=== PATIENT | female | born 1955 | race Caucasian/White ===

== ENCOUNTER 2016-08-08 14:11 | Inpatient (IN) ==
[2016-08-08] MEDS ORDERED: SODIUM CHLORIDE 0.9% 1,000 ML IV STA (15:26)
--- NOTE | 2016-08-08 15:29 | EKG Report ---
Stationary ECG Study [facility] ER Test Date: 08/08/2016 2:33:28 PM Pat Name: VALENTINA MANN Department: Room: Gender: F Tram Operator: Roberto Astudillo : 1955 Requested by: Jr Masters Order Number: [id number] Reading MD: DUSTIN CRAFT Intervals [place] Rate: 57 P: 65 [place]: 148 QRS: 69 QRSD: 92 T: 59 QT: 444 QTc: 437 Interpretive Statements SINUS BRADYCARDIA Electronically Signed On 08-08-16 16:07:04 RUBBER MIXER by DUSTIN CRAFT [email or web address]
--- NOTE | 2016-08-08 15:35 | Emergency Department Note ---
Jc Lyle Meredith, am scribing for, and in the presence of, Jr Corona MD 15: 30. Chloe Lyle James D, MD, personally performed the services described in this documentation, ascribed by Kelsie Greene in my presence, and it is both accurate and complete [id number] . Arrival - Arrival Chief Complaint: Syncope Stated Complaint: MULTIPLE FALLS, TRANSCIENT CHANGES IN LOC ED Nursing Triage Note: syncopal episodes with falls that started on saturday. having slurred speech with episodes. had an episode last night as well. glucose was 146 at home today after fall. Mode of Arrival: Wheelchair Limitations: No Limitations Source: Patient, Old Records Reviewed, RN Notes Reviewed Time Seen by Provider: 08/08/16 15:21 - History of Present Illness HPI Narrative: Pt is a 61 y/o white female reporting to the ED with c/o multiple syncopal episodes since the end of May. She had 2 last night and 3 today. Pt confirms associated lightheadedness and slurred speech but denies any urinary/ fecal incontinence or palpitations. Pt states her grandson has witnessed one of these episodes and reported that she started shaking then passed out. She was recently diagnosed with diabetes. Her blood sugar just after her most recent syncopal episode was 146 mg/dL. Pt has a history of HTN, anxiety, depression, HLD, asthma, herniated disk, and endometriosis. Onset (ago): month(s) Consistency: intermittent Allergies/Adverse Reactions: Allergies Allergy/AdvReac Type Severity Reaction Status Date / Time No Known Allergies Allergy Unverified 01/24/16 09:21 Home Medications: Home Medications Medication Instructions Recorded Confirmed Type Atenolol 50 mg PO DAILY 01/26/16 01/26/16 History Atorvastatin [Lipitor] 20 mg PO DAILY 01/26/16 01/26/16 History Clorazepate [Tranxene] 3.75 mg PO BID PRN 01/26/16 01/26/16 History Furosemide Tab [Lasix Tab] 10 mg PO DAILY 01/26/16 01/26/16 History Levothyroxine Tab [Synthroid Tab] 100 mcg PO DAILY@0700 01/26/16 01/26/16 History Nitroglycerin Sl Tab [Nitrostat] 0.4 mg SL Q5M PRN 01/26/16 01/26/16 History Sertraline [Zoloft] 100 mg PO DAILY 01/26/16 01/26/16 History traMADol TAB [Ultram] 50 mg PO BID PRN 01/26/16 01/26/16 History Aspirin Chew Tab 81 mg PO DAILY #100 tablet 01/27/16 Rx Cilostazol [Pletal] 50 mg PO BID #60 tablet 01/27/16 Rx HYDROcodone/ACETAMIN 7.5-325 1 tablet PO BID PRN #20 tablet 01/27/16 Rx [[place] 7.5-325] Niacin 500 mg PO BEDTIME #100 tablet 01/27/16 Rx Ticagrelor [Brilinta] 90 mg PO BID #60 tablet 01/27/16 Rx Tramadol HCl [Tramadol Tab] 50 mg PO BID PRN #30 tablet 01/27/16 Rx Review of System - Review of System 12 point system: reviewed and no additional remarkable complaints except as stated - Review of System Constitutional: Present: as per HPI, other (lightheadedness) Cardiovascular: Present: as per HPI, syncope. Absent: palpitations Gastrointestinal: Present: as per HPI, other (no fecal incontience) Genitourinary female: Present: as per HPI, other (no urinary incontinence) Neurological: Present: as per HPI, other (slurred speech) Medical,Surgical,& Family Hx - Medical History Cardio: History of: Hypertension Psychological: History of: Anxiety Disorders, Depression (due to husbands recent ) Neurology: No history of: Seizures Endocrine: History of: Dyslipidemia Respiratory: History of: Asthma Musculoskeletal: History of: Back/Neck Problems, Herniated Disk Reproductive: History of: Endometriosis - Surgical History Cardiac Surgeries: Sugical HX of: Cardiac Catheterization HEENT Surgeries: Patient denies: Tonsilectomy & Adenoidectomy (patient stated tonsils rotted out) Abdominal Surgeries: Surgical HX of: Abdominal Surgery (at 20yo), Appendectomy, Hernia Repair Reproductive Surgeries: Surgical HX of;: Breast Surgery (patient stated she had 2 lumps removed) - Family History Family History: Reports;: Family Cancer (mom- ovarian, cervical; dad - colon; sisters breast, ovarian; brother bone), Family Hypertension (mom, dad, & 3 sisters), Family Stroke (maternal grandmother) - Social History Smoking Status: Never smoker Exam Physical Examination: GENERAL: This is a well-nourished, well-developed white female in no apparent distress. VITAL SIGNS: Temperature: 97.1, Pulse: 60, Respirations: 18, Blood pressure: 116 /62, O2 Saturation: 97 HEENT: Head is normocephalic with an area of ecchymosis to the mid forehead. Pupils are equally round and reactive to light. Extraocular movement are intact. Oropharynx is benign with moist mucous membranes. NECK: Neck is soft and supple without tenderness. There are no masses. There is no lymphadenopathy. LUNGS: Lungs are clear to auscultation bilaterally. Chest rises symmetrically. There is no chest wall tenderness. CV: Heart is regular rate and rhythm without murmurs, rubs, or gallops. ABDOMEN: Abdomen is soft, non-tender to palpation. There are no abnormal masses palpated. There is no organomegaly. Bowel sounds are present and active. SKIN: Skin is warm and dry. No rash. Area of ecchymosis to the mid forehead. EXTREMITIES: Patient has full range of motion without tenderness. There is no pedal edema. NEUROLOGIC: Awake, alert, and oriented x4. Cranial nerves II through XII are grossly intact. There are no motorsensory deficits. PSYCHIATRIC: Normal affect. Normal mood. Vital Signs: Vital Signs Temperature 97.1 F L 08/08/16 14:23 Pulse Rate 60 08/08/16 14:23 Respiratory Rate 16 08/08/16 16:30 Blood Pressure 116/62 08/08/16 14:23 O2 Sat by Pulse Oximetry 97 08/08/16 14:23 Results - Labs CBC & BMP: 08/08/16 15:20 08/08/16 15:20 Lab Results: I have reviewed the patients labs Labs: Laboratory Tests 08/08/16 08/08/16 15:20 15:20 WBC 10.0 RBC 4.21 Hgb 13.2 Hct 38.0 Plt Count 349 MPV 9.0 L Baso % (Auto) 1.0 H Lymph # (Auto) 4.5 H INR 1.0 PT Patient/Control Mix 10.7 Laboratory Tests 08/08/16 15:20 Sodium 142 Potassium 4.0 Chloride 105 Carbon Dioxide 26 BUN 19 H Creatinine 1.10 H Troponin I < 0.015 Laboratory Tests 08/08/16 15:20 B-Natriuretic Peptide 21 Prolactin 6.4 Laboratory Tests 08/08/16 15:20 Troponin I < 0.015 - EKG EKG results: interpreted by ERMD - Impressions EKG: Sinus bradycardia with a rate of 57, normal axis, nonspecific ST-T wave changes. - Diagnostic Findings Procedure: Chest x-ray: image reviewed by me, CT: report reviewed by me (CT head : No acute intracranial abnormality. ) Disposition Clinical Impression: Syncope, Diabetes mellitus Case discussed with: patient Disposition: Still a Patient
[2016-08-08 15:38] LABS: Basophils # 0.1 10*3/uL (0.0-0.2); Eosinophils # 0.1 10*3/uL (0.0-0.87); Eosinophils % 1.2 % (0.00-10.9); Hemoglobin 13.2 GM/DL (12.0-16.0); Immature Granulocytes % 0.2 %; Immature Granulocytes Absolute 0.02 #; Lymphocytes # 4.5 10*3/uL (1.4-4.0); Lymphocytes % 45.5 % (21.3-54.2); Mean Corpuscular HGB Conc 34.7 GM/DL (32-36); Mean Corpuscular Hemoglobin 31 PG (27-34); Mean Corpuscular Volume 90.3 FL (87-102); Monocytes # 0.8 10*3/uL (0.11-0.8); Monocytes % 7.8 % (1.7-12.7); Neutrophils # 4.4 10*3/uL (1.4-7.4); Neutrophils % 44.3 % (38.7-73.9); Platelet Count 349 T/CUMM (130-400); Red Blood Count 4.21 MC/CUMM (3.8-5.5); Red Cell Distribution Width 13.1 % (9.3-17.3)
[2016-08-08 15:50] LABS: PT Patient Result 10.7 SECS
--- NOTE | 2016-08-08 15:50 | CT Report ---
Referring physician: Jr Corona Exam: CT brain without contrast Date: 08/08/2016 Comparison: None Reason: Syncope Technique: Axial images of the head were obtained without the use of contrast. Total DLP was 1103.60 mGy*cm. Findings: No hydrocephalus or midline shift is present. There is no evidence of an acute infarction, recent intracranial hemorrhage or abnormal mass effect. The osseous structures appear intact. The mastoid air cells and visualized paranasal sinuses are clear. Impression: No acute intracranial abnormality is identified. The CT exam was performed using one or more of the following dose reduction techniques: Automated exposure control and adjustment of the mA and/or kV according to patient size. PROCEDURE INTERPRETED AT [facility] DEPARTMENT OF RADIOLOGY Final Report Signed by: Dr. Lilly Valentin
[2016-08-08 16:06] LABS: Alanine Aminotransferase 35 U/L (13-56); Albumin 3.8 G/DL (3.4-5.0); Alkaline Phosphatase 90 U/L (45-117); Aspartate Amino Transferase 27 U/L (0-37); Bilirubin,Total < 0.39 MG/DL (0.2-1.0); Blood Urea Nitrogen 19 MG/DL (7-18); Calcium 9.4 MG/DL (8.5-10.1); Glucose 90 MG/DL (74-106); Osmolality,Calculated 284.1 MOS/KG (273-304); Sodium 142 MMOL/L (136-145); Total Protein 7.2 G/DL (6.4-8.3); Troponin I Only < 0.015 NG/ML (0.00-0.045)
[2016-08-08 16:21] LABS: Prolactin 6.4 NG/ML
[2016-08-08] MEDS ORDERED: GLUCAGON 1 MG VIAL IM PRN (16:32)
[2016-08-08] MEDS ORDERED: DEXTROSE 50% 25 GM/50 ML VIAL IV PRN (16:32)
[2016-08-08] MEDS ORDERED: ACETAMINOPHEN 325 MG TABLET PO PRN (16:32)
[2016-08-08] MEDS ORDERED: NALOXONE 0.4 MG/ML VIAL IV PRN (16:32)
[2016-08-08] MEDS ORDERED: ONDANSETRON 4 MG/2 ML VIAL IV PRN (16:32)
[2016-08-08] MEDS ORDERED: traMADol 50 MG TABLET PO PRN (16:32)
--- NOTE | 2016-08-08 16:46 | Family Practice History&Phys ---
Assessment and Plan (1) Syncope Status: Acute Assessment and plan: 08/08/2016: Cardiac workup has been ordered. Will consult cardiology. Carotid Dopplers and venous Dopplers lower extremities have been ordered. I am going to ask pain management to see her as her back pain is severe. Current Visit: Yes History of Present Illness Chief complaint: Recurrent syncope History of present illness: Ms. Ceja is a 61 year old female Patient's 61-year-old white female presents to emergency room with history of recurring syncopal episodes. Patient is fallen 3 times today and each time she feels like she is going to pass out and falls to the floor. Patient had one episode yesterday episode 2 days before. She has had complete syncope and 2 of these episodes and on the other episodes almost passed out. Patient states he does not have any chest pain or palpitations prior to these spells but feels herself getting weak and down she goes. She does have a history of coronary artery disease and has had prior left heart cath and stenting. She denies any nausea, vomiting or diaphoresis with these episodes. She denies any neck shoulder arm discomfort associated with these spells. There is no one present that is witnessed any of these episodes. There is nothing to suggest seizure- like episodes and she certainly has not had any incontinence or tongue trauma. Patient has been burdened with severe back pain has been going to the pain management clinic. Home Medications Medication Instructions Recorded Confirmed Type Atenolol 50 mg PO DAILY 01/26/16 01/26/16 History Atorvastatin [Lipitor] 20 mg PO DAILY 01/26/16 01/26/16 History Clorazepate [Tranxene] 3.75 mg PO BID PRN 01/26/16 01/26/16 History Furosemide Tab [Lasix Tab] 10 mg PO DAILY 01/26/16 01/26/16 History Levothyroxine Tab [Synthroid Tab] 100 mcg PO DAILY@0700 01/26/16 01/26/16 History Nitroglycerin Sl Tab [Nitrostat] 0.4 mg SL Q5M PRN 01/26/16 01/26/16 History Sertraline [Zoloft] 100 mg PO DAILY 01/26/16 01/26/16 History traMADol TAB [Ultram] 50 mg PO BID PRN 01/26/16 01/26/16 History Aspirin Chew Tab 81 mg PO DAILY #100 tablet 01/27/16 Rx Cilostazol [Pletal] 50 mg PO BID #60 tablet 01/27/16 Rx HYDROcodone/ACETAMIN 7.5-325 1 tablet PO BID PRN #20 tablet 01/27/16 Rx [[place] 7.5-325] Niacin 500 mg PO BEDTIME #100 tablet 01/27/16 Rx Ticagrelor [Brilinta] 90 mg PO BID #60 tablet 01/27/16 Rx Tramadol HCl [Tramadol Tab] 50 mg PO BID PRN #30 tablet 01/27/16 Rx Allergies Allergy/AdvReac Type Severity Reaction Status Date / Time No Known Allergies Allergy Unverified 01/24/16 09:21 - Constitutional Constitutional: Present: fatigue. Absent: chills, fever(s), weakness, weight gain - EENT Eyes: Absent: blurry vision, loss of vision Nose, mouth and throat: Absent: nasal congestion, sinus pressure, sore throat - Cardiovascular Cardiovascular: Present: lightheadedness. Absent: chest pain at rest, chest pain with activity, diaphoresis, orthopnea, palpitations - Respiratory Respiratory: Present: dyspnea, dyspnea on exertion. Absent: cough, wheezing - Gastrointestinal Gastrointestinal: Absent: abdominal pain, diarrhea, dyspepsia, dysphagia, melena , nausea, vomiting - Genitourinary Genitourinary: Absent: dysuria, hematuria, urinary hesitancy, urinary incontinence - Musculoskeletal Musculoskeletal: Present: back pain, limited range of motion. Absent: arthralgias, joint swelling, muscle weakness - Neurological Neurological: Present: syncope. Absent: confusion, convulsions, dizziness, headache(s), numbness, paresthesias - Psychiatric Psychiatric: Absent: anxiety, confusion, depression - Endocrine Endocrine: Present: fatigue. Absent: polydipsia, polyphagia - Hematologic/Lymphatic Hematologic/Lymphatic: Absent: easy bleeding, easy bruising Medical,Surgical,& Family Hx - Medical History Cardio: History of: Hypertension Psychological: History of: Anxiety Disorders, Depression (due to husbands recent ) Neurology: No history of: Seizures Endocrine: History of: Dyslipidemia Respiratory: History of: Asthma Musculoskeletal: History of: Back/Neck Problems, Herniated Disk Reproductive: History of: Endometriosis - Surgical History Cardiac Surgeries: Sugical HX of: Cardiac Catheterization HEENT Surgeries: Patient denies: Tonsilectomy & Adenoidectomy (patient stated tonsils rotted out) Abdominal Surgeries: Surgical HX of: Abdominal Surgery (at 20yo), Appendectomy, Hernia Repair Reproductive Surgeries: Surgical HX of;: Breast Surgery (patient stated she had 2 lumps removed) - Family History Family History: Reports;: Family Cancer (mom- ovarian, cervical; dad - colon; sisters breast, ovarian; brother bone), Family Hypertension (mom, dad, & 3 sisters), Family Stroke (maternal grandmother) - Social History Smoking Status: Never smoker Exam - Constitutional Vitals: Period Temp Pulse Resp BP Sys/Joseph Pulse Ox Last 24 Hr 97.1 F 60 16-18 116/62 97 Exam: Objective well-developed white female in no acute distress. Patient is tearful and upset about the developments of the day. She is able to give an excellent history but has obvious lack of clarity in some points due to her loss of consciousness. She denies any lateralizing weakness or confusion. HEENT: Pupils are equal round and reactive light bilaterally. Patient has normal EOMs. The pharynx is benign and the tongue is in the midline. Neck: The neck is supple there is no meningismus or thyromegaly palpable Cardiovascular: The heart rate is regular without murmurs, thrills or gallops. Patient was noted to have equal peripheral pulses. Respiratory: Lungs clear to auscultation bilaterally with no rales, rhonchi or wheezing Abdomen: Abdomen soft and nontender to palpation with no palpable hepatosplenomegaly, masses, localized or rebound tenderness. Neurologic: Patient has symmetrical strength in upper extremities. She is noted to have weakness in both lower extremities with attempted movement being apparently quite painful. She has no loss of sensation in her cranial nerves are intact. Extremities: There is no calf swelling or tenderness. Musculoskeletal: There is no joint swelling or tenderness at present. Dermatologic: There is no rashes, lesions or other abnormality seen. Results - Labs CBC & BMP: 08/08/16 15:20 08/08/16 15:20 Lab Results: I have reviewed the past 24 hour labs - Diagnostic Findings Procedure: CT: report reviewed by me (CT brain is unremarkable)
--- NOTE | 2016-08-08 16:55 | XRay Report ---
XR chest 1V portable Indication: Syncope Comparison: None available Findings: The heart and mediastinum are normal in size and configuration. The pulmonary vascularity is normal in caliber. No lung infiltrates, effusions, pneumothorax or other abnormality is demonstrated. Impression: Normal chest x-ray PROCEDURE INTERPRETED AT [facility] DEPARTMENT OF RADIOLOGY Final Report Signed by: Dr. Steven Burris
--- NOTE | 2016-08-08 17:56 | Ultrasound Report ---
Exam: Bilateral lower extremity venous Doppler ultrasound Comparison: None Clinical history: Shortness of breath, syncope Technique: Duplex scan of the lower extremity veins using B-mode/grayscale scaled imaging and Doppler spectral analysis and color flow. Findings: Major venous structures of the lower extremities demonstrate a normal course and caliber. Normal color-flow study and spectral analysis. There is normal compression and augmentation of bilateral common femoral, superficial femoral and popliteal veins. The proximal bilateral greater saphenous veins appear to be patent. Impression: No evidence to suggest deep venous thrombosis within either lower extremity. Ultrasound images were captured and stored. PROCEDURE INTERPRETED AT [facility] DEPARTMENT OF RADIOLOGY Final Report Signed by: Dr. Lilly Valentin
--- NOTE | 2016-08-08 17:58 | Ultrasound Report ---
Exam: Carotid ultrasound Date: 08/08/2016 Comparison: None Technique: Duplex scans of the carotid and vertebral arteries using B-mode/Lala scale imaging and Doppler spectral analysis and color flow. Reason: Syncope Findings: The right ICA measures 5.7 mm in diameter and the left ICA measures 5.7 mm in diameter. Color-flow documented in the visualized arteries. The peak systolic velocities are as follows: Right CCA: 74.2 cm/s Right ICA: 73.3 cm/s Right ECA: 120.6 cm/s Left CCA: 83.1 cm/s Left ICA: 69.3 cm/s Left ECA: 81.1 cm/s The peak systolic ICA/CCA velocity ratios are as follows: 1.0 on the right and 0.8 on the left. Antegrade flow is present in both vertebral arteries. Impression:[Less than 50% stenosis in both internal carotid arteries with heterogeneous plaque formation. Antegrade flow in both vertebral arteries.] The Society of Radiologists in Ultrasound consensus conference criteria was used. The Ultrasound images were captured and stored. PROCEDURE INTERPRETED AT [facility] DEPARTMENT OF RADIOLOGY Final Report Signed by: Dr. Lilly Valentin
[2016-08-08 18:08] LABS: Apearance,Urine CLEAR (Clear); Bilirubin,Urine Negative (Negative); Blood, Urine Negative (Negative); Glucose,Urine (UA) Negative (Negative); Ketones,Urine Negative (Negative); Nitrite,Urine Negative (Negative); Protein,Urine Negative; RBC,Urine 1 /HPF (0-4); Squamous Epithelial Cell,Urine Occasional /HPF (0-10); Urine Color Colorless (Yellow); Urine Specific Gravity 1.004 (1.001-1.035); Urine Urobilinogen < 2.0 EU/DL (0.2-1.0); WBC,Urine 1 /HPF (0-6)
[2016-08-08 18:12] LABS: Barbiturates Screen,Urine Negative (Negative); Benzodiazepines Screen,Urine Positive (Negative); Cannabinoid Screen,Urine Negative (Negative); Opiate Screen,Urine Positive (Negative); Phencyclidine Screen,Urine Negative (Negative)
[2016-08-08] MEDS ORDERED: NITROGLYCERIN SL 0.4 MG TABLET SL PRN (18:37)
[2016-08-08] MEDS: SODIUM CHLORIDE 0.45% 1,000 ML IV SCH (18:45)
[2016-08-08 20:23] LABS: Troponin I Only < 0.015 NG/ML (0.00-0.045)
[2016-08-08] MEDS: ENOXAPARIN 40 MG/0.4 ML SYRINGE SUBCUT SCH (21:10)
[2016-08-08] MEDS: HYDROmorphone 2 MG/1 ML VIAL IV PRN (21:10)
[2016-08-08] MEDS: DOCUSATE SODIUM 100 MG CAPSULE PO SCH (21:10)
[2016-08-08] MEDS: NIACIN 500 MG TABLET PO SCH (21:10)
[2016-08-08] MEDS: TICAGRELOR 90 MG TABLET PO SCH (22:02)
[2016-08-08] MEDS: INSULIN REGULAR 100 UNIT/ML SUBCUT SCH (22:14)
[2016-08-09 00:22] LABS: Troponin I Only < 0.015 NG/ML (0.00-0.045)
[2016-08-09 02:38] LABS: Calcium 8.3 MG/DL (8.5-10.1); Osmolality,Calculated 290.7 MOS/KG (273-304); Potassium 4.1 MMOL/L (3.5-5.1); Risk Ratio 3.71
[2016-08-09 02:39] LABS: Troponin I Only < 0.015 NG/ML (0.00-0.045)
[2016-08-09] MEDS: HYDROmorphone 2 MG/1 ML VIAL IV PRN (04:12)
[2016-08-09] MEDS: LEVOTHYROXINE 100 MCG TABLET PO SCH (06:23)
[2016-08-09] MEDS: SODIUM CHLORIDE 0.45% 1,000 ML IV SCH ×2 (06:28→17:15)
--- NOTE | 2016-08-09 07:46 | EKG Report ---
Stationary ECG Study [facility] Test Date: 08/09/2016 7:45:31 AM Pat Name: VALENTINA MANN Department: Room: 238 Gender: F Director Of Services: KALEB : 1955 Requested by: Jimy Conway Order Number: [id number] Reading MD: MARINO MANSFIELD Intervals [place] Rate: 59 P: 58 [place]: 140 QRS: 45 QRSD: 85 T: 44 QT: 405 QTc: 404 Interpretive Statements SINUS RHYTHM Electronically Signed On 08-09-16 20:44:06 RUG SIZER by MARINO MANSFIELD [email or web address]
[2016-08-09] MEDS: INSULIN REGULAR 100 UNIT/ML SUBCUT SCH ×4 (07:52→21:25)
--- NOTE | 2016-08-09 08:04 | Family Practice Progress Note ---
Family Practice - PN: Subj Interval history: Patient states she had a restless night. She has not had any near syncopal episodes though she denies any chest pain this morning. Her carotid Doppler showed less than 50% stenosis of both internal carotids and antegrade flow in both vertebrals. Venous Dopplers were negative. She scheduled for EEG this morning. She denies any chest pain or palpitations. She appears to have normal sinus rhythm on the monitor. Exam (Progress Note) - Constitutional Vitals: Period Temp Pulse Resp BP Sys/Joseph Pulse Ox Last 24 Hr 97.6 F-98.3 F 60-72 16-20 140-173/76-91 97-100 Exam: Objective a well-developed white female is awake alert and able to give good history. She is sitting up in bed eating her breakfast. She appears to be in no distress. Cardiovascular: Heart rate is regular without murmurs or gallops. Respiratory: The lungs clear to auscultation bilaterally Abdomen: Abdomen soft and nontender to palpation. Extremities: There is no calf swelling or tenderness. Neurologic: Patient has symmetrical strength upper extremities. She still somewhat weak in lower extremities but she has a great deal of pain with any motion. Results - Labs CBC & BMP: 08/08/16 15:20 08/09/16 01:37 Lab Results: I have reviewed the past 24 hour labs - EKG EKG results: WNL Assessment and Plan (1) Syncope Status: Acute Assessment and plan: 08/08/2016: Cardiac workup has been ordered. Will consult cardiology. Carotid Dopplers and venous Dopplers lower extremities have been ordered. I am going to ask pain management to see her as her back pain is severe. 08/09/2016: We will continue present workup. Current Visit: Yes
[2016-08-09] MEDS ORDERED: FUROSEMIDE 20 MG TABLET PO SCH (09:00)
[2016-08-09] MEDS: ATORVASTATIN 20 MG TABLET PO SCH (09:03)
[2016-08-09] MEDS: SERTRALINE 100 MG TABLET PO SCH (09:04)
[2016-08-09] MEDS: ASPIRIN CHEW 81 MG TABLET PO SCH (09:04)
[2016-08-09] MEDS: PANTOPRAZOLE 40 MG TABLET PO SCH (09:05)
[2016-08-09] MEDS: TICAGRELOR 90 MG TABLET PO SCH (09:05)
[2016-08-09] MEDS: DOCUSATE SODIUM 100 MG CAPSULE PO SCH ×2 (09:05→21:22)
--- NOTE | 2016-08-09 09:19 | Event Note ---
Came to evaluate Ms. Ceja in consultation however she was not in her room. I will return for evaluation later.
--- NOTE | 2016-08-09 12:37 | Pain Management Consult Note ---
Assessment and Plan - Time spent with patient Time spent with patient: Less than 30 minutes (1) Lumbar disc herniation with myelopathy Problem details: known L 4-5 HNP Status: Acute Assessment and plan: The Patient has large L4-5 HNP with known would radiculopathy and myelopathy. she has had 4 back surgeries and has had foot drop since first surgery in 1990. she reports 1-2 months of falling with blacking out. i do not think falling related to foot drop. ideally we would try TF LESI or surgical referral, but still in one year window from [facility] and can not come off anticoagulants. will treat her medically. intolerant to Durigesic and hydrocodons makes her "feel funny". will try low dose oxycodone and add adjuvent for medical management of pain. i will folllow. Current Visit: Yes History of Present Illness Chief complaint: back and leg pain History of present illness: Ms. Ceja is a 61 year old female well known to me with long-standing low back and leg pain. She's had 4 previous back surgeries with the last being in 2009 and the first being in 1990. The last surgery she had was a lumbar fusion. She has partial failure of hardware. She developed worsening back and leg pain 6-9 months ago. The pain as a constant throbbing aching burning discomfort worse with activity. Home Medications Medication Instructions Recorded Confirmed Type RX: Atenolol 50 mg PO BID 01/26/16 08/08/16 History RX: Atorvastatin [Lipitor] 20 mg PO DAILY 01/26/16 08/08/16 History RX: Levothyroxine Tab [Synthroid 100 mcg PO DAILY@0700 01/26/16 08/08/16 History Tab] RX: Nitroglycerin Sl Tab 0.4 mg SL Q5M PRN 01/26/16 08/08/16 History [Nitrostat] RX: Sertraline [Zoloft] 100 mg PO DAILY 01/26/16 08/08/16 History HYDROcodone/ACETAMIN 7.5-325 1 tablet PO BID PRN #20 tablet 01/27/16 08/08/16 Rx [[place] 7.5-325] RX: Aspirin Chew Tab 81 mg PO DAILY #100 tablet 01/27/16 08/08/16 Rx RX: Cilostazol [Pletal] 50 mg PO BID #60 tablet 01/27/16 08/08/16 Rx RX: Niacin 500 mg PO BEDTIME #100 tablet 01/27/16 08/08/16 Rx RX: Ticagrelor [Brilinta] 90 mg PO BID #60 tablet 01/27/16 08/08/16 Rx Clorazepate Dipotassium 7.5 mg PO BID 08/08/16 08/08/16 History [Clorazepate Dipotassium] Furosemide [Furosemide] 20 mg PO DAILY 08/08/16 08/08/16 History Glimepiride [Glimepiride] 1 mg PO DAILY 08/08/16 08/08/16 History Tizanidine HCl [Tizanidine HCl] 2 - 4 mg PO Q8H PRN 08/08/16 08/08/16 History Allergies Allergy/AdvReac Type Severity Reaction Status Date / Time No Known Allergies Allergy Unverified 01/24/16 09:21 Medical,Surgical,& Family Hx - Medical History Cardio: History of: Hypertension Psychological: History of: Anxiety Disorders, Depression (due to husbands recent ) Neurology: No history of: Seizures Endocrine: History of: Dyslipidemia, Endocrine Problems (Jess's) Respiratory: History of: Asthma Genitourinary: History of: Kidney Stones Musculoskeletal: History of: Back/Neck Problems, Herniated Disk Reproductive: History of: Endometriosis - Surgical History Cardiac Surgeries: Sugical HX of: Cardiac Catheterization (december 2015) HEENT Surgeries: Patient denies: Tonsilectomy & Adenoidectomy (patient stated tonsils rotted out) Abdominal Surgeries: Surgical HX of: Abdominal Surgery (at 20yo), Appendectomy, Colonoscopy, EGD, Hernia Repair Reproductive Surgeries: Surgical HX of;: Breast Surgery (patient stated she had 2 lumps removed), Hysterectomy (at age 23) - Family History Family History: Reports;: Family Cancer (mom- ovarian, cervical; dad - colon; sisters breast, ovarian; brother bone), Family Hypertension (mom, dad, & 3 sisters), Family Stroke (maternal grandmother) - Social History Smoking Status: Never smoker Frequency of Alcohol Use: None Type of Drug Use: None - Constitutional Constitutional: Present: fatigue - Cardiovascular Cardiovascular: Present: syncope - Gastrointestinal Gastrointestinal: Present: bloating, constipation - Musculoskeletal Musculoskeletal: Present: back pain - Neurological Neurological: Present: focal weakness, numbness, paresthesias Exam - Constitutional Vitals: Period Temp Pulse Resp BP Sys/Joseph Pulse Ox Last 24 Hr 97.6 F-98.4 F 60-74 16-20 140-173/76-91 96-100 General appearance: normal weight - Eye Eye exam: Present: EOMI - Neck Neck exam: Present: trachea midline - Respiratory Respiratory exam: Present: clear to auscultation bilaterally - Cardiovascular Cardiovascular exam: Present: RRR - GI/Abdominal GI/Abdominal exam: Present: normal bowel sounds - Back Exam Back exam: Present: vertebral tenderness - Neurological Exam Neurological exam: Present: alert, oriented X3, abnormal gait, CN II-XII intact , motor sensory deficit (both lower extremities with weakness bilaterally) Results - Labs CBC & BMP: 08/08/16 15:20 08/09/16 01:37
[2016-08-09] MEDS: oxyCODONE IR 5 MG TABLET PO PRN ×2 (13:55→21:42)
[2016-08-09] MEDS: GABAPENTIN 100 MG CAPSULE PO SCH ×2 (13:58→21:22)
[2016-08-09] MEDS ORDERED: amLODIPine 5 MG TABLET PO SCH (15:00)
--- NOTE | 2016-08-09 18:29 | Cardiology Consult Note ---
I, Patricia Foss RN, am scribing for, and in the presence of, August Mack MD 18:25. Assessment and Plan - Time spent with patient Time spent with patient: Greater than 30 minutes (due to assessment, planning, documentation) (1) Syncope Status: Acute Assessment and plan: Etiology unclear. This certainly may be related to rhythm or rate disturbance. I am going to request that we do an event monitor at discharge Dr. Murillo can follow-up on. She may contact down to needing a link monitor but his frequent she's had these episodes we should be able to capture these events on an event monitor. Current Visit: Yes (2) Hypertension Status: Chronic Assessment and plan: Since being off of the atenolol her blood pressure done up in our amlodipine. Current Visit: Yes (3) Hypercholesteremia Status: Chronic Assessment and plan: Continue her statin drug. Current Visit: Yes (4) CAD (coronary artery disease) Status: Chronic Assessment and plan: Prior stents is been on Brilinta. Current Visit: No Qualifiers: Coronary Disease-Associated Artery/Lesion type: [place] artery (5) Diabetes mellitus Status: Acute Current Visit: Yes History of Present Illness - Data of Consult Patient: known to practice within the last 3 years Consult date: 08/09/16 Requesting Physician: Jl Molina Primary care physician: Jl Molina - Consult Narrative Reason for consult: syncope History of present illness: Ms. Ceja is a 61 year old white female routinely followed by Dr. Jayjay Murillo in clinic. PMHx includes hypertension, coronary artery disease with stenting of her proximal right coronary artery and angioplasty of diagonal branch within the last year, recently diagnosed diabetes, hypothyroidism, hyperlipidemia, situational anxiety and depression, asthma, chronic back pain followed by Dr. Freeman. She was admitted to hospital yesterday for syncope with falls. Cardiology has been consulted to evaluate. Workup in ER included lab work, EKG, chest x-ray, head CT, carotid doppler US, venous doppler US. This has all been unremarkable in relation to her symptoms. Last seen by Dr. Murillo in March 2016 in follow up for shortness of breath, dyspnea on exertion, fluid retention of extremities, jaw pain, and anxiety. She had been started on Zoloft and Lasix and in March had relief of her symptom. She is scheduled to follow up with him in August. Per her report, she has been having syncope and presyncope intermittently since the beginning of July. She has had falls with some of these episodes and has acquired several bruises throughout body. With these episodes, she says her speech is slurred for a few minutes. There has been no bladder or bowel incontinence. Denies orthostasis and says when episodes occur, she has always been up and active for at least 5 minutes when she suddenly feels dizzy and either blacks out with fall or stumbles with near collapse. She denies ever having an episode while at rest. In the ER notes, she denied palpitations with these episodes. While interviewing patient, she states she has had palpitations and she correlates them with her syncope/presyncope. Reports her glucose levels have been normal with each of these falls as she is sure to check them. Denies recent or current chest pain, shortness of breath, orthopnea, PND, LE edema. She has had an EEG earlier this morning. Will review when results available. Slightly hypertensive with SBP 150-165. Atenolol has been held after some brief bradycardia yesterday with heart rates in the 50's. Heart rate currently 70's, sinus rhythm. No PVC or PAC noted from 12 lead EKG or monitoring specialist strips. Of note, she seems somewhat anxious and eventually tearful during exam and interview. In talking with her about this, she becomes very tearful, tells me her 1 year ago today, 2 rooms down from where she currently is. States, "I am just so very tired and need to get better." Since admission her atenolol is been stopped because of her heart rates getting into the 50s. Over this her blood pressure increased and she's been placed on Norvasc/amlodipine. Her blood pressures are running low on the high side. Her heart rates are stable. I will see any dysrhythmias on her telemetry. As noted she's had some dizziness earlier raises the issue whether or not his could be related to her Brilinta since it started shortly after starting this medication. She's been on this now for 6 months and switching to a program would be appropriate. CC: Jl Molina MD - Home Medications and Allergies Home Medications: Home Medications Medication Instructions Recorded Confirmed Type Atenolol 50 mg PO BID 01/26/16 08/08/16 History Atorvastatin [Lipitor] 20 mg PO DAILY 01/26/16 08/08/16 History Levothyroxine Tab [Synthroid Tab] 100 mcg PO DAILY@0700 01/26/16 08/08/16 History Nitroglycerin Sl Tab [Nitrostat] 0.4 mg SL Q5M PRN 01/26/16 08/08/16 History Sertraline [Zoloft] 100 mg PO DAILY 01/26/16 08/08/16 History Aspirin Chew Tab 81 mg PO DAILY #100 tablet 01/27/16 08/08/16 Rx Cilostazol [Pletal] 50 mg PO BID #60 tablet 01/27/16 08/08/16 Rx HYDROcodone/ACETAMIN 7.5-325 1 tablet PO BID PRN #20 tablet 01/27/16 08/08/16 Rx [[place] 7.5-325] Niacin 500 mg PO BEDTIME #100 tablet 01/27/16 08/08/16 Rx Ticagrelor [Brilinta] 90 mg PO BID #60 tablet 01/27/16 08/08/16 Rx Clorazepate Dipotassium 7.5 mg PO BID 08/08/16 08/08/16 History [Clorazepate Dipotassium] Furosemide [Furosemide] 20 mg PO DAILY 08/08/16 08/08/16 History Glimepiride [Glimepiride] 1 mg PO DAILY 08/08/16 08/08/16 History Tizanidine HCl [Tizanidine HCl] 2 - 4 mg PO Q8H PRN 08/08/16 08/08/16 History Allergies/Adverse Reactions: Allergies Allergy/AdvReac Type Severity Reaction Status Date / Time No Known Allergies Allergy Unverified 01/24/16 09:21 - Constitutional Constitutional: Present: frequent falls, malaise, weakness. Absent: chills, daytime sleepiness, excessive sweating, fever(s), lethargy, night sweats, stops breathing during sleep, weight gain, weight loss - EENT Eyes: Absent: blurry vision, loss of vision Ears: Absent: decreased hearing Nose, mouth and throat: Absent: dysphagia, epistaxis, lip swelling, nasal congestion, neck pain, sore throat, throat swelling, tongue swelling - Cardiovascular Cardiovascular: Present: lightheadedness, palpitations (per patient report). Absent: chest pain at rest, chest pain with activity, claudication, diaphoresis , dyspnea, dyspnea on exertion, edema, radiating jaw, neck or arm pain, orthopnea, PND - Respiratory Respiratory: Absent: cough, dyspnea, hemoptysis, dyspnea on exertion, wheezing, snoring, change in phlegm color - Gastrointestinal Gastrointestinal: Absent: abdominal pain, bloating, constipation, diarrhea, dysphagia, heartburn, melena, nausea, vomiting, jaundice - Genitourinary Genitourinary: Absent: dysuria, flank pain, hematuria - Musculoskeletal Musculoskeletal: Present: arthralgias, back pain (chronic), limited range of motion - Neurological Neurological: Present: dizziness (none presently), frequent falls (recent; none since admission.), syncope (recently; none at present). Absent: abnormal gait, abnormal speech, confusion, tremor(s) - Psychiatric Psychiatric: Present: anxiety, depression. Absent: panic attacks - Endocrine Endocrine: Present: fatigue. Absent: cold intolerance, heat intolerance - Hematologic/Lymphatic Hematologic/Lymphatic: Present: easy bruising. Absent: easy bleeding Medical,Surgical,& Family Hx - Medical History Cardio: History of: CAD, Hypertension No history of: Cardiac Dysrhythmia, CHF, NM, Pacemaker, PVD Psychological: History of: Anxiety Disorders, Depression Neurology: History of: Migraine No history of: Cerebral Hemorrhage, Cerebrovascular Accident, Dementia, Seizures, TIA, Vertigo Endocrine: History of: Diabetes Mellitus (NIDDM), Dyslipidemia, Thyroid Disorder , Endocrine Problems (Jess's) Respiratory: History of: Asthma No history of: Bronchitis, COPD, Obstructive Sleep Apnea Renal: No history of: Renal Failure Genitourinary: History of: Kidney Stones Gastrointestinal: History of: GERD, Polyps No history of: Hepatitis Musculoskeletal: History of: Back/Neck Problems, Herniated Disk Hematology: No history of: Anemia, Bleeding Problems Reproductive: History of: Endometriosis Other: No history of: Cancer - Surgical History Cardiac Surgeries: Sugical HX of: Cardiac Catheterization (december 2015) Patient Denies: Carotid Endarterectomy, Internal Defibrillator, Vascular Access Devices HEENT Surgeries: Patient denies: Tonsilectomy & Adenoidectomy (patient stated tonsils rotted out) Abdominal Surgeries: Surgical HX of: Abdominal Surgery (at 20yo), Appendectomy, Colonoscopy, EGD, Hernia Repair Reproductive Surgeries: Surgical HX of;: Breast Surgery (patient stated she had 2 lumps removed), Hysterectomy (at age 23) - Family History Family History: Reports;: Family Cancer (mom- ovarian, cervical; dad - colon; sisters breast, ovarian; brother bone), Family Heart Disease (father), Family Hypertension (mom, dad, & 3 sisters), Family Stroke (maternal grandmother) - Social History Smoking Status: Never smoker Frequency of Alcohol Use: None Type of Drug Use: None Marital Status: Functional capacity: independent ambulation Physical Examination Vital Signs Temp Pulse Resp BP Pulse Ox 97.1 F L 60 18 116/62 97 08/08/16 14:23 08/08/16 14:23 08/08/16 14:23 08/08/16 14:23 08/08/16 14:23 General: Present: No Apparent Distress HEENT: Present: PERRL, Mucus Membranes Moist Neck: Present: Supple Neck, Midline Trachea Cardiac: Present: Reg Rate and Rhythm, No Murmur. Absent: Audible Murmur, Tachycardia, Bradycardia Lungs: Present: Clear Ascult./Percussion, No Wheeze, Rales, Rhonchi Neuro: Present: Grossly Intact. Absent: Numbness, Tingling, Resting Tremor Abdomen: Present: Soft, Active Bowel Sounds. Absent: Tender, Firm, Distended Skin: Present: Other (bruises throughout posterior right upper thigh, back, right torso area r/t previous falls) Musculoskeletal: Present: Decreased Range of Motion, No Fluid Collection Extremities: Present: No Clubbing, No Cyanosis, No Edema, Normal Upper Extr. Pulses (2+), Normal Lower Extr. Pulses (2+), Capillary Refill (normal) Result/EKG - Labs CBC & BMP: 08/08/16 15:20 08/09/16 01:37 Lab Results: I have reviewed the past 24 hour labs Labs: Laboratory Results - last 24 hr 08/08/16 08/08/16 08/08/16 17:54 17:54 18:46 Sodium Potassium Chloride Carbon Dioxide Anion Gap BUN Creatinine GFR Calculation BUN/Creatinine Ratio Glucose POC Glucose 132 H Calculated Osmolality Calcium Total Creatine Kinase CK-MB (CK-2) Troponin I Triglycerides Cholesterol LDL Cholesterol VLDL Cholesterol HDL Cholesterol Heart Disease Risk Ratio Urine Color Colorless Urine Appearance Clear Urine pH 6.0 Ur Specific [place] 1.004 Urine Protein Negative Urine Glucose (UA) Negative Urine Ketones Negative Urine Blood Negative Urine Nitrate Negative Urine Bilirubin Negative Urine Urobilinogen < 2.0 H Urine Leukocytes Negative Urine RBC 1 Urine WBC 1 Ur Squamous Epith Cells Occasional Ur Culture Indicated? Not indicated Urine Opiates Screen Positive H Ur Barbiturates Screen Negative Ur Phencyclidine Scrn Negative U Amphetamine/Methamph Negative U Benzodiazepines Scrn Positive H U Cocaine Metab Screen Negative U Cannabinoids Screen Negative 08/08/16 08/08/16 08/09/16 19:30 23:35 01:37 Sodium 145 Potassium 4.1 Chloride 108 H Carbon Dioxide 26 Anion Gap 15.1 H BUN 20 H Creatinine 1.20 H GFR Calculation 52 BUN/Creatinine Ratio 16.00 Glucose 92 POC Glucose Calculated Osmolality 290.7 Calcium 8.3 L Total Creatine Kinase 72 72 CK-MB (CK-2) < 1.0 < 1.0 Troponin I < 0.015 < 0.015 Triglycerides 355 H Cholesterol 156 LDL Cholesterol 81.0 VLDL Cholesterol 71.0 HDL Cholesterol 42 Heart Disease Risk Ratio 3.71 Urine Color Urine Appearance Urine pH Ur Specific [place] Urine Protein Urine Glucose (UA) Urine Ketones Urine Blood Urine Nitrate Urine Bilirubin Urine Urobilinogen Urine Leukocytes Urine RBC Urine WBC Ur Squamous Epith Cells Ur Culture Indicated? Urine Opiates Screen Ur Barbiturates Screen Ur Phencyclidine Scrn U Amphetamine/Methamph U Benzodiazepines Scrn U Cocaine Metab Screen U Cannabinoids Screen 08/09/16 08/09/16 01:37 07:14 Sodium Potassium Chloride Carbon Dioxide Anion Gap BUN Creatinine GFR Calculation BUN/Creatinine Ratio Glucose POC Glucose 88 Calculated Osmolality Calcium Total Creatine Kinase 79 CK-MB (CK-2) < 1.0 Troponin I < 0.015 Triglycerides Cholesterol LDL Cholesterol VLDL Cholesterol HDL Cholesterol Heart Disease Risk Ratio Urine Color Urine Appearance Urine pH Ur Specific [place] Urine Protein Urine Glucose (UA) Urine Ketones Urine Blood Urine Nitrate Urine Bilirubin Urine Urobilinogen Urine Leukocytes Urine RBC Urine WBC Ur Squamous Epith Cells Ur Culture Indicated? Urine Opiates Screen Ur Barbiturates Screen Ur Phencyclidine Scrn U Amphetamine/Methamph U Benzodiazepines Scrn U Cocaine Metab Screen U Cannabinoids Screen - Impressions Impressions: ECG and telemetry is without any acute changes. There is no dysrhythmias. Her CT of the head as well as carotid Dopplers and venous Dopplers were really unremarkable. We will await her EEG. - Diagnostic Findings Procedure: Chest x-ray: report reviewed by me, image reviewed by me - EKG EKG results: interpreted by me EKG shows: sinus rhythm Frederick Lyle John Timothy, MD, personally performed the services described in this documentation, ascribed by Patricia Foss RN in my presence, and it is both accurate and complete 828 .
[2016-08-09] MEDS: hydrALAZINE 25 MG TABLET PO PRN (19:12)
--- NOTE | 2016-08-09 20:32 | Electroencephalogram ---
HISTORY: A 51-year-old female with a history of recurrent syncope. MEDICATIONS: Not available. INTRODUCTION: A digital EEG was performed using the standard 10-20 system of electrode placement wi th one-channel of EKG monitoring. Photic stimulation and hyperventilation are performed. DESCRIPTION OF RECORD: The background is somewhat disorganized and consists of 8.5 to 9 hertz moder ate amplitude bilaterally symmetrical alpha rhythm predominant in the posterior head region, which a ttenuates with eye opening. Photic stimulation elicits a driving response at all flash frequencies. Hyperventilation produced no abnormalities. Drowsiness and sleep is not achieved. There are no f ocal, sharp wave, spike, or wave activity seen. Heart rate 80 beats per minute. IMPRESSION: NORMAL EEG DURING WAKEFULNESS. CLINICAL CORRELATION: No focal nor epileptiform features are seen. Normal EEG does not rule out th e diagnostic possibility of epilepsy. Clinical correlation suggested.
[2016-08-09] MEDS: ENOXAPARIN 40 MG/0.4 ML SYRINGE SUBCUT SCH (21:21)
[2016-08-09] MEDS: NIACIN 500 MG TABLET PO SCH (21:22)
[2016-08-10] MEDS: HYDROmorphone 2 MG/1 ML VIAL IV PRN (00:18)
[2016-08-10] MEDS: hydrALAZINE 25 MG TABLET PO PRN (01:49)
[2016-08-10] MEDS ORDERED: cloNIDine 0.1 MG TABLET PO ONE (02:43)
[2016-08-10] MEDS: SODIUM CHLORIDE 0.45% 1,000 ML IV SCH ×2 (03:08→15:22)
--- NOTE | 2016-08-10 07:14 | EKG Report ---
Stationary ECG Study [facility] Test Date: 08/10/2016 7:12:40 AM Pat Name: VALENTINA MANN Department: Room: 238 Gender: F [employer] Tech: : [id number] Requested by: Jimy Conway Order Number: [id number] Reading MD: DUSTIN CRAFT Intervals [place] Rate: 61 P: 74 WV: 136 QRS: 71 QRSD: 88 T: 34 QT: 466 QTc: 470 Interpretive Statements SINUS RHYTHM NONSPECIFIC T-WAVE ABNORMALITY Electronically Signed On 08-11-16 17:05:37 [employer] by DUSTIN CRAFT [email or web address]
[2016-08-10] MEDS: INSULIN REGULAR 100 UNIT/ML SUBCUT SCH ×4 (07:47→20:55)
[2016-08-10] MEDS: LEVOTHYROXINE 100 MCG TABLET PO SCH (07:48)
--- NOTE | 2016-08-10 08:29 | Family Practice Progress Note ---
Family Practice - PN: Subj Interval history: Patient states that she is very weak and didn't sleep much during the night. Blood Pressures have been significantly elevated since modifying her medications. Patient states that she's not been up sitting in chair or ambulating. Reviewed lab and other studies. Appreciate Dr. Mack's consult.. Have modified blood pressure medications and encouraged patient to ambulate and sit in chair as much as possible. Dr. Mack plans to place an event monitor on discharge. Patient states that she's having significant diffuse pain being followed by pain management. Reviewed studies and if blood pressure improves and patient increase his activity then hopefully can be discharged soon. Her physical examination is otherwise stable Exam (Progress Note) - Constitutional Vitals: Period Temp Pulse Resp BP Sys/Joseph Pulse Ox Last 24 Hr 97.6 F-98.6 F 68-84 18-22 156-198/77-110 93-100 Results - Labs CBC & BMP: 08/08/16 15:20 08/09/16 01:37
[2016-08-10] MEDS: FUROSEMIDE 20 MG TABLET PO SCH (08:35)
[2016-08-10] MEDS: CLORAZEPATE 3.75 MG TABLET PO PRN ×2 (08:36→20:54)
[2016-08-10] MEDS: SERTRALINE 100 MG TABLET PO SCH (08:36)
[2016-08-10] MEDS: ASPIRIN CHEW 81 MG TABLET PO SCH (08:36)
[2016-08-10] MEDS: GLIMEPIRIDE 2 MG TABLET PO SCH (08:36)
[2016-08-10] MEDS: oxyCODONE IR 5 MG TABLET PO PRN (08:36)
[2016-08-10] MEDS: GABAPENTIN 100 MG CAPSULE PO SCH ×2 (08:37→20:54)
[2016-08-10] MEDS: PANTOPRAZOLE 40 MG TABLET PO SCH (08:37)
[2016-08-10] MEDS: DOCUSATE SODIUM 100 MG CAPSULE PO SCH ×2 (08:37→20:55)
[2016-08-10] MEDS: CLOPIDOGREL 75 MG TABLET PO SCH (08:38)
[2016-08-10] MEDS: ATORVASTATIN 20 MG TABLET PO SCH (08:38)
[2016-08-10] MEDS: CILOSTAZOL 50 MG TABLET PO SCH ×2 (08:38→20:54)
--- NOTE | 2016-08-10 08:40 | Pain Management Progress Note ---
Assessment and Plan (1) Lumbar disc herniation with myelopathy Problem details: known L 4-5 HNP Status: Acute Assessment and plan: 08/10/2016. still uncomfortable. will schedule her oxycodone, rather than prn. Her pain is longstanding without easy fix. Will cautiously advance her meds , and continue to do so after discharge. The Patient has large L4-5 HNP with known would radiculopathy and myelopathy. she has had 4 back surgeries and has had foot drop since first surgery in 1990. she reports 1-2 months of falling with blacking out. i do not think falling related to foot drop. ideally we would try TF LESI or surgical referral, but still in one year window from [facility] and can not come off anticoagulants. will treat her medically. intolerant to Durigesic and hydrocodons makes her "feel funny". will try low dose oxycodone and add adjuvent for medical management of pain. i will colby. Current Visit: Yes Pain - Subjective Interval history: a lot of pain last night, slept pooly. Exam - Constitutional Vitals: Period Temp Pulse Resp BP Sys/Joseph Pulse Ox Last 24 Hr 97.2 F-98.6 F 68-84 18-22 129-198/68-110 93-100 Results - Labs CBC & BMP: 08/08/16 15:20 08/09/16 01:37
[2016-08-10] MEDS ORDERED: amLODIPine 10 MG TABLET PO ONE (09:00)
[2016-08-10] MEDS: oxyCODONE IR 5 MG TABLET PO SCH ×2 (15:21→20:55)
--- NOTE | 2016-08-10 15:45 | Cardiology Progress Note ---
Valdo, Patricia Foss RN, am scribing for, and in the presence of, August Mack MD 15:43. Assessment and Plan - Time spent with patient Time spent with patient: Less than 30 minutes (1) Syncope Status: Acute Assessment and plan: Etiology unclear at present. May possibly be related to rhythm or rate disturbance. No rate issues here especially change in medications and stopping her beta guerline. An event monitor home was to be appropriate with Dr. Murillo. Current Visit: Yes (2) Hypertension Status: Chronic Assessment and plan: Blood pressures seemed to do better on the Norvasc but she is now off of that. We will restart hopefully a Adolph or ARB. Current Visit: Yes (3) Hypercholesteremia Status: Chronic Assessment and plan: Continue lipid lowering agent. Current Visit: Yes (4) CAD (coronary artery disease) Status: Chronic Assessment and plan: Prior stenting less than 1 year ago. Brilinta was discontinued yesterday evening , and Plavix introduced this morning. Since stopping the Brilinta her dyspnea has resolved. Brilinta use could possibly be related to her dizziness as symptoms seem to have started shortly after starting this medication. Current Visit: No Qualifiers: Coronary Disease-Associated Artery/Lesion type: anvik artery (5) Diabetes mellitus Status: Acute Current Visit: Yes Cardiology - PN: Subj Interval history: Sleeping soundly on side this morning. Rouses easily. States she did not sleep very well at all last night due to severe back pain. Says she had an episode of dizziness/lightheadedness while she was sitting up in bedside chair around 3 or 4 this morning but did not experience syncope. Her heart rates were okay on telemetry.. There are no tele strips in chart for review since yesterday evening. 12 lead EKG this morning without change from previous, sinus rhythm without ectopy. After atenolol stopped for some bradycardia, she has become hypertensive. Has received a couple doses of Norvasc and overnight had a once dose of clonidine 0.1 mg. Overnight, systolic BP 160-190. Most recent blood pressure 129/68 and 136/65. Glucose levels normal. No labs available for review this morning. I reviewed with her echocardiogram findings which are really insignificant and with no significant pathology. Also Brilinta and now using Plavix her shortness of breath is resolved. Exam (Progress Note) - Constitutional Vitals: Period Temp Pulse Resp BP Sys/Joseph Pulse Ox Last 24 Hr 97.2 F-98.6 F 68-84 18-22 129-198/68-110 93-100 Exam: General: Present: No Apparent Distress HEENT: Present: PERRL, Mucus Membranes Moist Neck: Present: Supple Neck, Midline Trachea Cardiac: Present: Reg Rate and Rhythm, No Murmur. Absent: Audible Murmur, Tachycardia, Bradycardia Lungs: Present: Clear Ascult./Percussion, No Wheeze, Rales, Rhonchi Neuro: Present: Grossly Intact. Absent: Numbness, Tingling, Resting Tremor Abdomen: Present: Soft, Active Bowel Sounds. Absent: Tender, Firm, Distended Skin: Present: Other (bruises throughout posterior right upper thigh, back, right torso area r/t previous falls) Musculoskeletal: Present: Decreased Range of Motion, No Fluid Collection Extremities: Present: No Clubbing, No Cyanosis, No Edema, Normal Upper Extr. Pulses (2+), Normal Lower Extr. Pulses (2+), Capillary Refill (normal) Result/EKG - Labs CBC & BMP: 08/08/16 15:20 08/09/16 01:37 Lab Results: I have reviewed the past 24 hour labs Labs: Laboratory Results - last 24 hr 08/09/16 08/09/16 08/09/16 13:53 17:16 20:07 POC Glucose 178 H 83 149 H 08/10/16 07:35 POC Glucose 129 H - Impressions Impressions: Telemetry normal sinus rhythm without bradyarrhythmias. - EKG EKG results: interpreted by me, no acute changes EKG shows: sinus rhythm I, August Mack MD, personally performed the services described in this documentation, ascribed by Patricia Foss RN in my presence, and it is both accurate and complete [id number] .
--- NOTE | 2016-08-10 15:50 | ECHO Report ---
Lilly Ceja Exam Date: 08/10/2016 09:24 Referring Physician: Technologist: Alberta Griffin RDCS Age: 61 Ht (in): Wt (lb): Gender: F Exam Location: [facility] Echo Indications: Shortness of breath, Syncope and collapse, Chronic fatigue, unspecified, Weakness, Essential (primary) hypertension, Hyperlipidemia, unspecified, Palpitations, NIDDM, CAD with previous stent BP: / HR: Rhythm: Sinus Technical Quality: fair to good IMPRESSIONS 1. Left ventricle is normal size and systolic function ejection fraction 60%. At worse mild diastolic dysfunction. 2. Other cardiac chambers are normal size and function. 3. Aortic valve is minimally sclerotic but functionally normal with trace insufficiency. 4. Other cardiac valves are unremarkable and normal structurally functionally. 5. There is mild to moderately elevated right-sided pressures. MEASUREMENTS (Male / Female) Normal Values 2D ECHO LV Diastolic Diameter PLAX 4.5 cm 4.2 - 5.9 / 3.9 - 5.3 cm LV Systolic Diameter PLAX 3.0 cm LV Fractional Shortening PLAX 34.0 % IVS Diastolic Thickness 1.0 cm 0.6 - 1.0 / 0.6 - 0.9 cm LVPW Diastolic Thickness 1.3 cm 0.6 - 1.0 / 0.6 - 0.9 cm RV Internal Dim ED PLAX 2.6 cm Aortic Root Diameter 2.4 cm LA Systolic Diameter LX 3.0 cm 3.0 - 4.0 / 2.7 - 3.8 cm DOPPLER TR Peak Velocity 324.0 cm/s TR Peak Gradient 42.0 mmHg FINDINGS Left Ventricle Normal left ventricular cavity size. Normal left ventricular wall thickness. Left ventricular ejection fraction is estimated at 60 %. No specific segmental wall motion abnormality is noted. At worst mild diastolic dysfunction. Right Ventricle The right ventricle is normal in size and function. Right Atrium The right atrium is normal in size. Left Atrium The left atrium is normal in size. Mitral Valve Morphologically normal mitral valve without significant stenosis or prolapse. There is no mitral regurgitation. Aortic Valve Aortic valve is a tricuspid structure with mild sclerosis without stenosis. Trace aortic valve regurgitation. Tricuspid Valve Morphologically normal tricuspid valve. Trace to mild tricuspid valve regurgitation. Tricuspid regurgitation velocities suggest a PAP of 52 mmHg. Pulmonic Valve Morphologically normal pulmonic valve. Trace pulmonary valve regurgitation. Pericardium Normal pericardium without effusion. Aorta Normal ascending aorta dimension. August Mack MD (Electronically Signed) Final Date: 10 August 2016 15:38
[2016-08-10] MEDS: NIACIN 500 MG TABLET PO SCH (20:54)
[2016-08-10] MEDS: LOSARTAN 25 MG TABLET PO SCH (20:55)
[2016-08-10] MEDS: ENOXAPARIN 40 MG/0.4 ML SYRINGE SUBCUT SCH (20:55)
[2016-08-11] MEDS: oxyCODONE IR 5 MG TABLET PO SCH ×2 (02:09→10:41)
[2016-08-11] MEDS: HYDROmorphone 2 MG/1 ML VIAL IV PRN ×2 (03:20→10:38)
[2016-08-11] MEDS: SODIUM CHLORIDE 0.45% 1,000 ML IV SCH (06:08)
[2016-08-11] MEDS: LEVOTHYROXINE 100 MCG TABLET PO SCH (06:09)
--- NOTE | 2016-08-11 08:31 | EKG Report ---
Stationary ECG Study [facility] Test Date: 08/11/2016 8:31:24 AM Pat Name: VALENTINA MANN Department: Room: 238 Gender: F Data Security Coordinator: KALEB : 1955 Requested by: Jimy Conway Order Number: [id number] Reading MD: MARINO MANSFIELD Intervals [place] Rate: 64 P: 74 DE: 138 QRS: 72 QRSD: 83 T: 76 QT: 414 QTc: 423 Interpretive Statements SINUS RHYTHM ST DEVIATION AND MODERATE T-WAVE ABNORMALITY, CONSIDER ANTERIOR ISCHEMIA Electronically Signed On 08-11-16 17:47:57 INFORMATION TECHNOLOGY ASSOCIATE by MARINO MANSFIELD [email or web address]
--- NOTE | 2016-08-11 09:32 | Discharge Summary ---
Hospital Course - Hospital Course Hospital Course: Patient seen this morning. She is doing much better she's been walking the halls and states she feels much stronger. Came into the hospital with shortness of breath. She was changed from Brilinta her to Plavix and presumably this helped her a lot. Denies any significant pain at this time he has no presyncopal symptoms. Her vital signs are stable, afebrile with a temperature 97.6. He has been voiding well and denies any abdominal discomfort. And it was recommended per cardiology that she get a cardiac event monitor for home. She does want to go home and we will discharge her today and continue the previous home meds except for changing to the Plavix. Discharge Plan - Discharge Data Disposition: Disch To Home/Self Care Condition at Discharge: Stable Discharge Diet: advance to your usual diet Activity: resume usual activities as tolerated Hygiene: no restrictions Weight Bearing at Discharge: full weight bearing Driving: no restrictions Contact your physician if you experience:: fever over 101, Shortness of breath - Discharge Medications New Losartan [Cozaar] 25 mg PO BID #30 tablet Clopidogrel [Plavix] 75 mg PO DAILY #30 tablet Clorazepate [Tranxene] 3.75 mg PO BID PRN #0 tablet PRN Reason: Anxiety Gabapentin Cap/Tab [Neurontin Cap/Tab] 100 mg PO BID #60 capsule Metoprolol Succinate 25 mg PO DAILY W/SUPPER #30 tab.er.24h Continue Nitroglycerin Sl Tab [Nitrostat] 0.4 mg SL Q5M PRN PRN Reason: Chest Pain Levothyroxine Tab [Synthroid Tab] 100 mcg PO DAILY@0700 Sertraline [Zoloft] 100 mg PO DAILY Atorvastatin [Lipitor] 20 mg PO DAILY Aspirin Chew Tab 81 mg PO DAILY #100 tablet Cilostazol [Pletal] 50 mg PO BID #60 tablet HYDROcodone/ACETAMIN 7.5-325 [Morrison 7.5-325] 1 tablet PO BID PRN #20 tablet PRN Reason: Pain Moderate To Severe (4-10) Niacin 500 mg PO BEDTIME #100 tablet Tizanidine HCl 2 - 4 mg PO Q8H PRN PRN Reason: MUSCLE SPASMS Furosemide 20 mg PO DAILY Glimepiride 1 mg PO DAILY Discontinued Atenolol 50 mg PO BID Ticagrelor [Brilinta] 90 mg PO BID #60 tablet Clorazepate Dipotassium [Clorazepate Dipotassium] 7.5 mg PO BID - Follow Up or Referral - Forms/Instructions Exam - Constitutional Vitals: Period Temp Pulse Resp BP Sys/Joseph Pulse Ox Last 24 Hr 97.6 F-98.1 F 67-79 19-20 122-157/65-81 97-98 Exam: Total exam is grossly unchanged. She is alert sits up in bed is in no acute distress. Not having having any problems with HEENT Denies any chest pain or shortness of breath Denies any abdominal pain or leg swelling Discharge Results Labs on day of discharge: Labs from last 24 hours 08/11/16 08/10/16 08/10/16 07:17 19:37 15:49 POC Glucose 134 H 149 H 104 08/10/16 11:35 POC Glucose 133 H DS: Provider Date of admission: 08/08/16 16:32 Primary care physician: . No PCP Attending physician on admission: Jl Molina MD Consults: 08/08/16 18:37 Consult to Pharmacy [CONS] Routine Reason for Pharmacy Consult: Adjust Meds Renal Funct 08/08/16 19:13 Consult to Pastoral Services [CONS] Routine Comment: Pastoral Screen: Request Casting Inspector Visit Discharging clinician: Deonte Uribe DO
[2016-08-11] MEDS: CLOPIDOGREL 75 MG TABLET PO SCH (10:22)
[2016-08-11] MEDS: DOCUSATE SODIUM 100 MG CAPSULE PO SCH (10:22)
[2016-08-11] MEDS: CILOSTAZOL 50 MG TABLET PO SCH (10:22)
[2016-08-11] MEDS: FUROSEMIDE 20 MG TABLET PO SCH (10:22)
[2016-08-11] MEDS: ATORVASTATIN 20 MG TABLET PO SCH (10:22)
[2016-08-11] MEDS: SERTRALINE 100 MG TABLET PO SCH (10:23)
[2016-08-11] MEDS: GLIMEPIRIDE 2 MG TABLET PO SCH (10:23)
[2016-08-11] MEDS: ASPIRIN CHEW 81 MG TABLET PO SCH (10:23)
[2016-08-11] MEDS: LOSARTAN 25 MG TABLET PO SCH (10:24)
[2016-08-11] MEDS: PANTOPRAZOLE 40 MG TABLET PO SCH (10:24)
[2016-08-11] MEDS: GABAPENTIN 100 MG CAPSULE PO SCH (10:25)
[2016-08-11] MEDS: INSULIN REGULAR 100 UNIT/ML SUBCUT SCH (10:42)
[2016-08-11 14:11] VITALS: BP 141/67
--- NOTE | 2016-08-15 13:33 | Physician Query Form ---
CLICK EDIT DOCUMENT TO SELECT QUERY ANSWER --> OK --> SIGN Ebony Womack RN Clinical Facilities Technician W) [phone] (f) [phone] [email or web address]: Make your selection(s) from the choices in EACH section by typing an "x" and enter comments in the comment section. Please use your independent medical judgment in providing your response. This request does not imply that any particular answer is desired or expected. CLINICAL INDICATORS: (Providers should not edit this section) Pt. admitted with syncope. Based on documentation of "May possibly be related to rhythm or rate disturbance. No rate issues here especially change in medications and stopping her beta guerline". Patient had heart rate of 54-58 in ER. Based on the above, could you clarify the appropriate diagnosis, if significant , that supports the above abnormalities and additional evaluation, monitoring, and/or treatment rendered: ( ) Syncope due to bradycardia ( ) Syncope due to ( ) Other, please specify: (x ) Clinically unable to determine COMMENTS: Use of terms such as suspected, likely, or probable (associated with a specific diagnosis that is being evaluated, monitored, or treated as if it exists) are acceptable and can be restated in the discharge summary if not ruled out. MTDD
== END 2016-08-11 12:45 | disposition home or self-care (01) | DRG 312 ==
LOC: N.ED 14:11 → N.EDINP 16:32 → N.2E 18:36
PROVIDERS: ADMIT Family Medicine; ATTEND Family Medicine

== ENCOUNTER 2019-05-04 07:12 | Inpatient (IN) ==
[2019-04-30 11:47] LABS: Basophils # 0.1 10*3/uL (0.0-0.2); Basophils % 0.9 % (0.0-0.8); Eosinophils # 0.1 10*3/uL (0.0-0.87); Eosinophils % 1.2 % (0.00-10.9); Hematocrit 34.3 VOL% (35.7-47.0); Hemoglobin 10.6 GM/DL (12.0-16.0); Immature Granulocytes % 0.1 %; Immature Granulocytes Absolute 0.01 #; Lymphocytes # 1.9 10*3/uL (1.4-4.0); Lymphocytes % 23.9 % (21.3-54.2); Mean Corpuscular HGB Conc 30.9 GM/DL (32-36); Mean Corpuscular Volume 84.9 FL (87-102); Mean Platelet Volume 8.8 FL (9.6-12.0); Monocytes % 6.8 % (1.7-12.7); Neutrophils % 67.1 % (38.7-73.9); Platelet Count 432 T/CUMM (130-400); Red Blood Count 4.04 MC/CUMM (3.8-5.5); Red Cell Distribution Width 14.4 % (9.3-17.3)
[2019-04-30 11:51] LABS: Apearance,Urine CLEAR (Clear); Bilirubin,Urine Negative (Negative); Blood, Urine Small mg/dL (Negative); Glucose,Urine (UA) 50 mg/dL (Negative); Ketones,Urine Negative (Negative); Mucus,Urine Few /LPF (Occasional); Nitrite,Urine Negative (Negative); Protein,Urine 30 MG/DL; RBC,Urine 4 /HPF (0-4); Squamous Epithelial Cell,Urine Few /HPF (0-10); Urine Color Yellow (Yellow); Urine Specific Gravity 1.023 (1.001-1.035); Urine Urobilinogen < 2.0 EU/DL (0.2-1.0); WBC,Urine 10 /HPF (0-6)
[2019-04-30 12:24] LABS: Alanine Aminotransferase 14 U/L (13-56); Albumin 2.7 G/DL (3.4-5.0); Alkaline Phosphatase 105 U/L (45-117); Aspartate Amino Transferase 15 U/L (0-37); Bilirubin,Total < 0.39 MG/DL (0.2-1.0); Blood Urea Nitrogen 16 MG/DL (7-18); Calcium 9.1 MG/DL (8.5-10.1); Estimated Glom Filtration Rate 54 ML/MIN; Glucose 252 MG/DL (74-106); Osmolality,Calculated 284.7 MOS/KG (273-304); Total Protein 8.4 G/DL (6.4-8.3)
[~2019-05-04 07:12] MED LIST: ACETAMINOPHEN 500 MG TABLET ONE; ACETAMINOPHEN 500 MG TABLET PO ONE; FAMOTIDINE 20 MG TABLET ONE; FAMOTIDINE 20 MG TABLET PO ONE; GABAPENTIN 400 MG CAPSULE ONE; GABAPENTIN 400 MG CAPSULE PO ONE; ceFAZolin 2,000 MG in PREMIX 1 EACH IV ONE
[2019-05-04] MEDS: LACTATED RINGERS 1,000 ML IV SCH (07:40)
[2019-05-04] MEDS ORDERED: MORPHINE 10 MG/1 ML VIAL ONE (07:41)
[2019-05-04] MEDS ORDERED: MORPHINE 10 MG/1 ML VIAL IV STA (07:45)
[2019-05-04] MEDS ORDERED: LIDOCAINE 2%/EPI 20 ML VIAL ONE (08:46)
[2019-05-04] MEDS ORDERED: BUPIVACAINE 0.5% 50 ML VIAL ONE (08:46)
[2019-05-04] MEDS ORDERED: TOBRAMYCIN 1.2 GM VIAL TOP ONE (08:46)
[2019-05-04] MEDS ORDERED: VANCOMYCIN 1,000 MG VIAL ONE (08:46)
[2019-05-04] MEDS ORDERED: BACITRACIN OINT 0.9 GM PACK TOP ONE (08:47)
[2019-05-04] MEDS ORDERED: ePHEDrine 50 MG/ML AMP ONE (10:15)
[2019-05-04] MEDS ORDERED: MINERAL OIL (TOPICAL) 25 ML BOTTLE TOP ONE (10:36)
[2019-05-04] MEDS ORDERED: PROPOFOL 200 MG/20 ML VIAL IV ONE ×2 (11:18→11:46)
[2019-05-04] MEDS ORDERED: ONDANSETRON 4 MG/2 ML VIAL IV PRN ×2 (11:32→11:43)
[2019-05-04] MEDS ORDERED: NITROGLYCERIN SL 0.4 MG TABLET SL PRN (11:41)
[2019-05-04] MEDS ORDERED: IPRATROPIUM 500 MCG/2.5 ML NEB RESP TX PRN (11:41)
[2019-05-04] MEDS ORDERED: DEXTROSE 50% 25 GM/50 ML VIAL IV PRN (11:42)
[2019-05-04] MEDS ORDERED: GLUCAGON 1 MG VIAL IM PRN (11:42)
[2019-05-04] MEDS ORDERED: KETOROLAC 15 MG/1 ML VIAL IV PRN (11:43)
[2019-05-04] MEDS ORDERED: oxyCODONE/ACETAMINOPHEN 5-325 MG TABLET PO PRN (11:43)
[2019-05-04] MEDS ORDERED: HYDROmorphone 2 MG/1 ML VIAL IV PRN (11:43)
[2019-05-04] MEDS ORDERED: diphenhydrAMINE CAP 25 MG CAPSULE PO PRN (11:43)
[2019-05-04] MEDS ORDERED: MAGNESIUM HYDROXIDE SUSP 30 ML UDCUP PO PRN (11:43)
[2019-05-04] MEDS ORDERED: LIDOCAINE 2% 5 ML VIAL ONE (11:46)
[2019-05-04] MEDS ORDERED: SEVOFLURANE 1 UNIT/15 MINUTE INH ONE (11:46)
[2019-05-04] MEDS ORDERED: fentaNYL 100 MCG/2 ML VIAL ONE (11:46)
[2019-05-04] MEDS ORDERED: ONDANSETRON 4 MG/2 ML VIAL ONE ×2 (11:47)
[2019-05-04] MEDS ORDERED: MIDAZOLAM 2 MG/2 ML VIAL ONE (11:47)
[2019-05-04] MEDS ORDERED: HYDROmorphone 2 MG/1 ML VIAL ONE (11:47)
[2019-05-04] MEDS ORDERED: LACTATED RINGERS 1,000 ML IV ONE (11:47)
[2019-05-04] MEDS ORDERED: ROPIVACAINE 0.5% 30 ML VIAL ONE (11:47)
[2019-05-04] MEDS ORDERED: DEXAMETHASONE 4 MG/1 ML VIAL ONE (11:47)
[2019-05-04] MEDS: HYDROmorphone 2 MG/1 ML VIAL IV PRN ×5 (11:50→22:58)
[2019-05-04] MEDS ORDERED: LACTATED RINGERS 1,000 ML IV SCH (12:00)
[2019-05-04] MEDS ORDERED: INFLUENZA VIRUS VACCINE 0.5 ML SYRINGE IM ONE (12:55)
[2019-05-04] MEDS ORDERED: ZALEPLON 5 MG CAPSULE PO PRN (14:00)
[2019-05-04] MEDS: GABAPENTIN 600 MG TABLET PO SCH ×2 (15:54→21:00)
[2019-05-04] MEDS: INSULIN LISPRO 100 UNIT/ML SUBCUT SCH ×2 (16:53→20:59)
[2019-05-04] MEDS: ceFAZolin 2,000 MG in PREMIX 1 EACH IV SCH (20:59)
[2019-05-04] MEDS: carvediloL 3.125 MG TABLET PO SCH (21:00)
[2019-05-04] MEDS: SERTRALINE 100 MG TABLET PO SCH (21:00)
[2019-05-05 04:33] LABS: Basophils % 0.3 % (0.0-0.8); Eosinophils % 0.1 % (0.00-10.9); Hemoglobin 9.7 GM/DL (12.0-16.0); Immature Granulocytes % 0.3 %; Immature Granulocytes Absolute 0.03 #; Lymphocytes # 2.7 10*3/uL (1.4-4.0); Lymphocytes % 28.2 % (21.3-54.2); Mean Corpuscular HGB Conc 31.3 GM/DL (32-36); Mean Corpuscular Volume 84.9 FL (87-102); Mean Platelet Volume 9.1 FL (9.6-12.0); Monocytes % 6.2 % (1.7-12.7); Neutrophils % 64.9 % (38.7-73.9); Platelet Count 482 T/CUMM (130-400); Red Blood Count 3.65 MC/CUMM (3.8-5.5); Red Cell Distribution Width 14.4 % (9.3-17.3); White Blood Count 9.6 T/CUMM (4-12)
[2019-05-05 04:46] LABS: Calcium 8.7 MG/DL (8.5-10.1); Osmolality,Calculated 277.7 MOS/KG (273-304)
[2019-05-05] MEDS: HYDROmorphone 2 MG/1 ML VIAL IV PRN ×5 (04:55→23:13)
[2019-05-05] MEDS: ceFAZolin 2,000 MG in PREMIX 1 EACH IV SCH ×3 (04:56→21:20)
[2019-05-05] MEDS ORDERED: FONDAPARINUX 2.5 MG/0.5 ML SYRINGE SUBCUT SCH (05:46)
[2019-05-05] MEDS: LEVOTHYROXINE 100 MCG TABLET PO SCH (06:40)
[2019-05-05] MEDS: INSULIN LISPRO 100 UNIT/ML SUBCUT SCH ×4 (07:24→21:20)
[2019-05-05] MEDS: ISOSORBIDE DINITRATE 20 MG TABLET PO SCH (08:38)
[2019-05-05] MEDS: PANTOPRAZOLE 40 MG TABLET PO SCH (08:39)
[2019-05-05] MEDS: FUROSEMIDE 20 MG TABLET PO SCH (08:39)
[2019-05-05] MEDS: GLIMEPIRIDE 2 MG TABLET PO SCH (08:39)
[2019-05-05] MEDS: GABAPENTIN 600 MG TABLET PO SCH ×2 (08:39→21:19)
[2019-05-05] MEDS: ATORVASTATIN 20 MG TABLET PO SCH (08:40)
[2019-05-05] MEDS: CALCIUM (CARBONATE)/VITAMIN D 600 MG-400 UNIT TABLET PO SCH (08:40)
[2019-05-05] MEDS: carvediloL 3.125 MG TABLET PO SCH ×2 (08:40→21:20)
[2019-05-05] MEDS: SERTRALINE 100 MG TABLET PO SCH ×2 (08:52→21:20)
[2019-05-05] MEDS: LACTATED RINGERS 1,000 ML IV SCH (10:01)
[2019-05-06] MEDS: POTASSIUM CHLORIDE INJ 20 MEQ in LACTATED RINGERS 1,000 ML IV SCH ×2 (00:37→15:07)
[2019-05-06] MEDS: HYDROmorphone 2 MG/1 ML VIAL IV PRN ×4 (03:06→20:45)
[2019-05-06 04:34] LABS: Basophils # 0.1 10*3/uL (0.0-0.2); Eosinophils # 0.1 10*3/uL (0.0-0.87); Eosinophils % 1.3 % (0.00-10.9); Hemoglobin 8.8 GM/DL (12.0-16.0); Immature Granulocytes % 0.2 %; Immature Granulocytes Absolute 0.02 #; Lymphocytes # 4.6 10*3/uL (1.4-4.0); Lymphocytes % 49.8 % (21.3-54.2); Mean Corpuscular HGB Conc 30.3 GM/DL (32-36); Mean Corpuscular Volume 85.8 FL (87-102); Mean Platelet Volume 9.2 FL (9.6-12.0); Monocytes % 7.4 % (1.7-12.7); Neutrophils % 40.3 % (38.7-73.9); Platelet Count 469 T/CUMM (130-400); Red Blood Count 3.38 MC/CUMM (3.8-5.5); Red Cell Distribution Width 14.6 % (9.3-17.3); White Blood Count 9.3 T/CUMM (4-12)
[2019-05-06 04:57] LABS: Calcium 8.5 MG/DL (8.5-10.1); Osmolality,Calculated 280.3 MOS/KG (273-304)
[2019-05-06] MEDS: ceFAZolin 2,000 MG in PREMIX 1 EACH IV SCH ×3 (04:58→20:49)
[2019-05-06] MEDS: LACTATED RINGERS 1,000 ML IV SCH (05:28)
[2019-05-06] MEDS ORDERED: FAMOTIDINE 20 MG TABLET PO ONE (06:00)
[2019-05-06] MEDS ORDERED: DIAZEPAM 5 MG TABLET PO ONE (06:00)
[2019-05-06] MEDS ORDERED: GABAPENTIN 400 MG CAPSULE PO ONE (06:00)
[2019-05-06] MEDS: LEVOTHYROXINE 100 MCG TABLET PO SCH (06:26)
[2019-05-06] MEDS: oxyCODONE/ACETAMINOPHEN 5-325 MG TABLET PO PRN ×2 (06:27→18:37)
[2019-05-06] MEDS: INSULIN LISPRO 100 UNIT/ML SUBCUT SCH ×4 (07:27→20:43)
[2019-05-06] MEDS: GLIMEPIRIDE 2 MG TABLET PO SCH (08:40)
[2019-05-06] MEDS: GABAPENTIN 600 MG TABLET PO SCH ×2 (08:40→20:41)
[2019-05-06] MEDS: SERTRALINE 100 MG TABLET PO SCH ×2 (08:40→20:41)
[2019-05-06] MEDS: CALCIUM (CARBONATE)/VITAMIN D 600 MG-400 UNIT TABLET PO SCH (08:40)
[2019-05-06] MEDS: FUROSEMIDE 20 MG TABLET PO SCH (08:41)
[2019-05-06] MEDS: carvediloL 3.125 MG TABLET PO SCH ×2 (08:41→20:41)
[2019-05-06] MEDS: ISOSORBIDE DINITRATE 20 MG TABLET PO SCH (08:41)
[2019-05-06] MEDS: ATORVASTATIN 20 MG TABLET PO SCH (08:41)
[2019-05-06] MEDS: PANTOPRAZOLE 40 MG TABLET PO SCH (08:41)
[2019-05-06] MEDS ORDERED: VANCOMYCIN 1,000 MG VIAL ONE (08:51)
[2019-05-06] MEDS ORDERED: ROPIVACAINE 0.5% 30 ML VIAL ONE (10:06)
[2019-05-06] MEDS ORDERED: LIDOCAINE 2% 5 ML VIAL ONE ×2 (10:07→13:14)
[2019-05-06] MEDS ORDERED: fentaNYL 100 MCG/2 ML VIAL ONE (10:07)
[2019-05-06] MEDS ORDERED: DEXAMETHASONE 4 MG/1 ML VIAL ONE (10:07)
[2019-05-06] MEDS ORDERED: MIDAZOLAM 2 MG/2 ML VIAL ONE (10:07)
[2019-05-06] MEDS ORDERED: TOBRAMYCIN 1.2 GM VIAL TOP ONE (10:18)
[2019-05-06] MEDS ORDERED: ceFAZolin 1,000 MG VIAL ONE (12:30)
[2019-05-06] MEDS ORDERED: MINERAL OIL (TOPICAL) 25 ML BOTTLE TOP ONE (12:35)
[2019-05-06] MEDS ORDERED: BACITRACIN OINT 0.9 GM PACK TOP ONE (12:50)
[2019-05-06] MEDS ORDERED: SEVOFLURANE 1 UNIT/15 MINUTE INH ONE (13:14)
[2019-05-06] MEDS ORDERED: LACTATED RINGERS 1,000 ML IV ONE (13:14)
[2019-05-06] MEDS ORDERED: ONDANSETRON 4 MG/2 ML VIAL ONE (13:14)
[2019-05-06] MEDS ORDERED: PROPOFOL 200 MG/20 ML VIAL IV ONE (13:14)
[2019-05-06] MEDS ORDERED: ePHEDrine 50 MG/ML AMP ONE (13:14)
[2019-05-07] MEDS: HYDROmorphone 2 MG/1 ML VIAL IV PRN ×5 (01:29→18:25)
[2019-05-07] MEDS: ceFAZolin 2,000 MG in PREMIX 1 EACH IV SCH ×3 (03:41→20:55)
[2019-05-07 04:49] LABS: Basophils % 0.2 % (0.0-0.8); Hematocrit 31.3 VOL% (35.7-47.0); Hemoglobin 9.3 GM/DL (12.0-16.0); Immature Granulocytes % 0.3 %; Immature Granulocytes Absolute 0.03 #; Lymphocytes # 2.2 10*3/uL (1.4-4.0); Lymphocytes % 25.6 % (21.3-54.2); Mean Corpuscular HGB Conc 29.7 GM/DL (32-36); Mean Corpuscular Volume 86.5 FL (87-102); Mean Platelet Volume 9.2 FL (9.6-12.0); Monocytes % 3.9 % (1.7-12.7); Platelet Count 534 T/CUMM (130-400); Red Blood Count 3.62 MC/CUMM (3.8-5.5); Red Cell Distribution Width 14.3 % (9.3-17.3); White Blood Count 8.7 T/CUMM (4-12)
[2019-05-07 05:10] LABS: Calcium 9.1 MG/DL (8.5-10.1); Osmolality,Calculated 285.4 MOS/KG (273-304)
[2019-05-07] MEDS: LEVOTHYROXINE 100 MCG TABLET PO SCH (06:31)
[2019-05-07] MEDS: CALCIUM (CARBONATE)/VITAMIN D 600 MG-400 UNIT TABLET PO SCH (08:38)
[2019-05-07] MEDS: carvediloL 3.125 MG TABLET PO SCH ×2 (08:38→20:56)
[2019-05-07] MEDS: GLIMEPIRIDE 2 MG TABLET PO SCH (08:38)
[2019-05-07] MEDS: ATORVASTATIN 20 MG TABLET PO SCH (08:38)
[2019-05-07] MEDS: GABAPENTIN 600 MG TABLET PO SCH ×2 (08:38→20:55)
[2019-05-07] MEDS: PANTOPRAZOLE 40 MG TABLET PO SCH (08:38)
[2019-05-07] MEDS: ISOSORBIDE DINITRATE 20 MG TABLET PO SCH (08:38)
[2019-05-07] MEDS: FONDAPARINUX 2.5 MG/0.5 ML SYRINGE SUBCUT SCH (08:38)
[2019-05-07] MEDS: SERTRALINE 100 MG TABLET PO SCH ×2 (08:39→20:56)
[2019-05-07] MEDS: INSULIN LISPRO 100 UNIT/ML SUBCUT SCH ×4 (08:45→20:58)
[2019-05-07] MEDS: FUROSEMIDE 20 MG TABLET PO SCH (10:01)
[2019-05-07] MEDS: LEVOFLOXACIN 500 MG TABLET PO SCH (10:01)
[2019-05-07] MEDS: oxyCODONE/ACETAMINOPHEN 5-325 MG TABLET PO PRN (20:58)
[2019-05-08] MEDS: HYDROmorphone 2 MG/1 ML VIAL IV PRN ×3 (00:03→08:59)
[2019-05-08] MEDS: ceFAZolin 2,000 MG in PREMIX 1 EACH IV SCH (03:21)
[2019-05-08] MEDS: LEVOTHYROXINE 100 MCG TABLET PO SCH (06:27)
[2019-05-08] MEDS: oxyCODONE/ACETAMINOPHEN 5-325 MG TABLET PO PRN ×2 (06:28→12:26)
[2019-05-08] MEDS: INSULIN LISPRO 100 UNIT/ML SUBCUT SCH ×2 (08:25→12:33)
[2019-05-08] MEDS: GLIMEPIRIDE 2 MG TABLET PO SCH (08:57)
[2019-05-08] MEDS: SERTRALINE 100 MG TABLET PO SCH (08:58)
[2019-05-08] MEDS: ISOSORBIDE DINITRATE 20 MG TABLET PO SCH (08:58)
[2019-05-08] MEDS: CALCIUM (CARBONATE)/VITAMIN D 600 MG-400 UNIT TABLET PO SCH (08:58)
[2019-05-08] MEDS: PANTOPRAZOLE 40 MG TABLET PO SCH (08:58)
[2019-05-08] MEDS: carvediloL 3.125 MG TABLET PO SCH (08:59)
[2019-05-08] MEDS: FUROSEMIDE 20 MG TABLET PO SCH (08:59)
[2019-05-08] MEDS: FONDAPARINUX 2.5 MG/0.5 ML SYRINGE SUBCUT SCH (08:59)
[2019-05-08] MEDS: ATORVASTATIN 20 MG TABLET PO SCH (08:59)
[2019-05-08] MEDS: LEVOFLOXACIN 500 MG TABLET PO SCH (08:59)
[2019-05-08] MEDS: GABAPENTIN 600 MG TABLET PO SCH (09:03)
[2019-05-08 11:05] VITALS: BP 138/78
[2019-05-08] MEDS ORDERED: PNEUMOCOCCAL VACCINE (13 VALENT) 0.5 ML SYRINGE IM ONE (13:07)
== END 2019-05-08 14:04 | disposition home or self-care (01) | DRG 982 ==
LOC: N.OR 07:12 → N.SDSINP 07:12 → N.3E 11:43
PROVIDERS: ADMIT Orthopaedic Surgery; ATTEND Orthopaedic Surgery

== ENCOUNTER 2019-07-08 05:43 | Inpatient (IN) ==
[2019-07-06 11:07] LABS: Basophils # 0.1 10*3/uL (0.0-0.2); Basophils % 0.8 % (0.0-0.8); Eosinophils # 0.2 10*3/uL (0.0-0.87); Eosinophils % 2.3 % (0.00-10.9); Hemoglobin 12.4 GM/DL (12.0-16.0); Immature Granulocytes % 0.3 %; Immature Granulocytes Absolute 0.02 #; Lymphocytes # 2.6 10*3/uL (1.4-4.0); Lymphocytes % 33.5 % (21.3-54.2); Mean Corpuscular HGB Conc 31.8 GM/DL (32-36); Monocytes % 6.8 % (1.7-12.7); Neutrophils % 56.3 % (38.7-73.9); Platelet Count 319 T/CUMM (130-400); Red Blood Count 4.59 MC/CUMM (3.8-5.5); Red Cell Distribution Width 16.6 % (9.3-17.3); White Blood Count 7.7 T/CUMM (4-12)
[2019-07-06 11:36] LABS: Apearance,Urine CLEAR (Clear); Bilirubin,Urine Negative (Negative); Blood, Urine Negative (Negative); Glucose,Urine (UA) Negative (Negative); Hyaline Casts,Urine 1 /LPF (0-3); Ketones,Urine Negative (Negative); Mucus,Urine Occasional /LPF (Occasional); Nitrite,Urine Negative (Negative); Protein,Urine Negative; RBC,Urine 1 /HPF (0-4); Squamous Epithelial Cell,Urine Occasional /HPF (0-10); Urine Color Straw (Yellow); Urine Specific Gravity 1.009 (1.001-1.035); Urine Urobilinogen < 2.0 EU/DL (0.2-1.0); WBC,Urine 1 /HPF (0-6)
[2019-07-06 11:51] LABS: Calcium 8.7 MG/DL (8.5-10.1); Osmolality,Calculated 282.4 MOS/KG (273-304)
[~2019-07-08 05:43] MED LIST changes: -ACETAMINOPHEN 500 MG TABLET ONE; -ACETAMINOPHEN 500 MG TABLET PO ONE; -FAMOTIDINE 20 MG TABLET ONE; -FAMOTIDINE 20 MG TABLET PO ONE; -GABAPENTIN 400 MG CAPSULE ONE; -GABAPENTIN 400 MG CAPSULE PO ONE; +GENTAMICIN INJ 80 MG in PREMIX 1 EACH IV ONE
[2019-07-08] MEDS ORDERED: GENTAMICIN 80 MG/2 ML VIAL ONE ×2 (06:49→07:52)
[2019-07-08] MEDS ORDERED: BACITRACIN OINT 0.9 GM PACK TOP ONE (06:49)
[2019-07-08] MEDS ORDERED: GENTAMICIN INJ 80 MG in PREMIX 1 EACH IV ONE (07:00)
[2019-07-08] MEDS ORDERED: ceFAZolin 2,000 MG in PREMIX 1 EACH IV ONE (07:00)
[2019-07-08] MEDS ORDERED: ceFAZolin 1,000 MG VIAL ONE ×2 (07:52→09:21)
[2019-07-08] MEDS ORDERED: LACTATED RINGERS 1,000 ML IV SCH (08:00)
[2019-07-08] MEDS ORDERED: ROPIVACAINE 0.5% 30 ML VIAL ONE ×2 (08:06→08:12)
[2019-07-08] MEDS ORDERED: LIDOCAINE 1% 5 ML VIAL ONE (08:06)
[2019-07-08] MEDS ORDERED: MIDAZOLAM 2 MG/2 ML VIAL ONE ×2 (08:07→11:58)
[2019-07-08] MEDS ORDERED: DEXAMETHASONE 4 MG/1 ML VIAL ONE ×2 (08:07→11:58)
[2019-07-08] MEDS ORDERED: GABAPENTIN 400 MG CAPSULE ONE (08:25)
[2019-07-08] MEDS ORDERED: ACETAMINOPHEN 500 MG TABLET ONE (08:25)
[2019-07-08] MEDS ORDERED: GABAPENTIN 400 MG CAPSULE PO ONE (08:26)
[2019-07-08] MEDS ORDERED: ACETAMINOPHEN 500 MG TABLET PO ONE (08:26)
[2019-07-08] MEDS ORDERED: NEOMYCIN/POLYMYXIN/BACITRACIN OINT 28.4 GM TUBE TOP ONE (11:14)
[2019-07-08] MEDS ORDERED: ONDANSETRON 4 MG/2 ML VIAL IV PRN ×2 (11:35→12:06)
[2019-07-08] MEDS ORDERED: KETOROLAC 30 MG/1 ML VIAL IV PRN (11:35)
[2019-07-08] MEDS ORDERED: MAGNESIUM HYDROXIDE SUSP 30 ML UDCUP PO PRN (11:35)
[2019-07-08] MEDS ORDERED: diphenhydrAMINE CAP 25 MG CAPSULE PO PRN (11:35)
[2019-07-08] MEDS ORDERED: GLUCAGON 1 MG VIAL IM PRN (11:37)
[2019-07-08] MEDS ORDERED: DEXTROSE 50% 25 GM/50 ML VIAL IV PRN (11:37)
[2019-07-08] MEDS ORDERED: LIDOCAINE 2% 5 ML VIAL ONE (11:58)
[2019-07-08] MEDS ORDERED: SEVOFLURANE 1 UNIT/15 MINUTE INH ONE (11:58)
[2019-07-08] MEDS ORDERED: propofoL 200 MG/20 ML VIAL IV ONE (11:58)
[2019-07-08] MEDS ORDERED: fentaNYL 100 MCG/2 ML VIAL ONE (11:58)
[2019-07-08] MEDS ORDERED: PHENYLEPHRINE 1 MG/10 ML SYRINGE IV ONE (11:59)
[2019-07-08] MEDS ORDERED: ONDANSETRON 4 MG/2 ML VIAL ONE ×2 (11:59→12:02)
[2019-07-08] MEDS ORDERED: LACTATED RINGERS 1,000 ML IV ONE (11:59)
[2019-07-08] MEDS ORDERED: GLYCOPYRROLATE 0.4 MG/2 ML VIAL ONE (11:59)
[2019-07-08] MEDS: HYDROmorphone 2 MG/1 ML VIAL IV PRN ×7 (12:01→22:30)
[2019-07-08] MEDS ORDERED: HYDROmorphone 2 MG/1 ML VIAL ONE (12:02)
[2019-07-08] MEDS ORDERED: MEPERIDINE 25 MG/1 ML VIAL IV PRN (12:36)
[2019-07-08] MEDS ORDERED: ZALEPLON 5 MG CAPSULE PO PRN (14:30)
[2019-07-08] MEDS ORDERED: IPRATROPIUM 500 MCG/2.5 ML NEB RESP TX PRN (14:30)
[2019-07-08] MEDS ORDERED: NITROGLYCERIN SL 0.4 MG TABLET SL PRN (14:30)
[2019-07-08] MEDS ORDERED: oxyCODONE/ACETAMINOPHEN 5-325 MG TABLET PO PRN (14:32)
[2019-07-08] MEDS: LACTATED RINGERS 1,000 ML IV SCH ×2 (15:03→23:09)
[2019-07-08] MEDS: INSULIN LISPRO 100 UNIT/ML SUBCUT SCH ×2 (16:37→20:46)
[2019-07-08] MEDS: ceFAZolin 2,000 MG in PREMIX 1 EACH IV SCH (16:38)
[2019-07-08] MEDS: GABAPENTIN 300 MG CAPSULE PO SCH (20:45)
[2019-07-08] MEDS: carvediloL 3.125 MG TABLET PO SCH (20:46)
[2019-07-08] MEDS: SERTRALINE 100 MG TABLET PO SCH (20:46)
[2019-07-09] MEDS: ceFAZolin 2,000 MG in PREMIX 1 EACH IV SCH ×3 (00:59→17:40)
[2019-07-09] MEDS: HYDROmorphone 2 MG/1 ML VIAL IV PRN ×5 (02:51→18:39)
[2019-07-09] MEDS: FONDAPARINUX 2.5 MG/0.5 ML SYRINGE SUBCUT SCH (05:52)
[2019-07-09] MEDS: LEVOTHYROXINE 100 MCG TABLET PO SCH (05:52)
[2019-07-09] MEDS: INSULIN LISPRO 100 UNIT/ML SUBCUT SCH ×4 (07:44→20:26)
[2019-07-09] MEDS: oxyCODONE/ACETAMINOPHEN 5-325 MG TABLET PO PRN ×3 (08:06→22:57)
[2019-07-09] MEDS: carvediloL 3.125 MG TABLET PO SCH ×2 (09:25→20:27)
[2019-07-09] MEDS: PANTOPRAZOLE 40 MG TABLET PO SCH (09:25)
[2019-07-09] MEDS: GABAPENTIN 300 MG CAPSULE PO SCH ×2 (09:25→20:27)
[2019-07-09] MEDS: CALCIUM (CARBONATE)/VITAMIN D 600 MG-400 UNIT TABLET PO SCH (09:25)
[2019-07-09] MEDS: FUROSEMIDE 20 MG TABLET PO SCH (09:25)
[2019-07-09] MEDS: ISOSORBIDE DINITRATE 20 MG TABLET PO SCH (09:25)
[2019-07-09] MEDS: GLIMEPIRIDE 2 MG TABLET PO SCH (09:25)
[2019-07-09] MEDS: ATORVASTATIN 20 MG TABLET PO SCH (09:25)
[2019-07-09] MEDS: SERTRALINE 100 MG TABLET PO SCH ×2 (09:25→20:27)
[2019-07-10] MEDS: HYDROmorphone 2 MG/1 ML VIAL IV PRN ×3 (01:02→12:33)
[2019-07-10] MEDS: ceFAZolin 2,000 MG in PREMIX 1 EACH IV SCH ×2 (01:04→09:09)
[2019-07-10] MEDS: FONDAPARINUX 2.5 MG/0.5 ML SYRINGE SUBCUT SCH (05:40)
[2019-07-10] MEDS: LEVOTHYROXINE 100 MCG TABLET PO SCH (05:40)
[2019-07-10] MEDS: INSULIN LISPRO 100 UNIT/ML SUBCUT SCH ×2 (07:33→12:11)
[2019-07-10] MEDS: GLIMEPIRIDE 2 MG TABLET PO SCH (09:03)
[2019-07-10] MEDS: ISOSORBIDE DINITRATE 20 MG TABLET PO SCH (09:04)
[2019-07-10] MEDS: carvediloL 3.125 MG TABLET PO SCH (09:05)
[2019-07-10] MEDS: ATORVASTATIN 20 MG TABLET PO SCH (09:05)
[2019-07-10] MEDS: CALCIUM (CARBONATE)/VITAMIN D 600 MG-400 UNIT TABLET PO SCH (09:05)
[2019-07-10] MEDS: SERTRALINE 100 MG TABLET PO SCH (09:05)
[2019-07-10] MEDS: FUROSEMIDE 20 MG TABLET PO SCH (09:05)
[2019-07-10] MEDS: PANTOPRAZOLE 40 MG TABLET PO SCH (09:05)
[2019-07-10] MEDS: GABAPENTIN 300 MG CAPSULE PO SCH (09:05)
[2019-07-10] MEDS: oxyCODONE/ACETAMINOPHEN 5-325 MG TABLET PO PRN (09:05)
[2019-07-10 11:54] VITALS: BP 136/59
== END 2019-07-10 14:50 | disposition home health service (06) | DRG 493 ==
LOC: N.SDSINP 05:43 → N.OR 05:43 → N.SDSINP 05:44 → N.3E 13:12
PROVIDERS: ADMIT Orthopaedic Surgery; ATTEND Orthopaedic Surgery

== ENCOUNTER 2020-03-30 15:39 | Inpatient (IN) ==
[2020-03-30] MEDS ORDERED: FONDAPARINUX 2.5 MG/0.5 ML SYRINGE SUBCUT SCH (16:30)
[2020-03-30] MEDS ORDERED: GLUCAGON 1 MG VIAL IM PRN (16:30)
[2020-03-30] MEDS ORDERED: ONDANSETRON 4 MG/2 ML VIAL IV PRN (16:30)
[2020-03-30] MEDS ORDERED: MAGNESIUM HYDROXIDE SUSP 30 ML UDCUP PO PRN (16:30)
[2020-03-30] MEDS ORDERED: DEXTROSE 50% 25 GM/50 ML VIAL IV PRN (16:30)
[2020-03-30] MEDS ORDERED: oxyCODONE/ACETAMINOPHEN 5-325 MG TABLET PO PRN (17:03)
[2020-03-30] MEDS ORDERED: tiZANidine 4 MG TABLET PO PRN (17:11)
[2020-03-30 17:13] LABS: Basophils # 0.1 10*3/uL (0.0-0.2); Basophils % 0.6 % (0.0-0.8); Eosinophils # 0.6 10*3/uL (0.0-0.87); Eosinophils % 3.4 % (0.00-10.9); Hematocrit 34.1 VOL% (35.7-47.0); Hemoglobin 10.9 GM/DL (12.0-16.0); Immature Granulocytes % 1.1 %; Immature Granulocytes Absolute 0.17 #; Lymphocytes # 2.6 10*3/uL (1.4-4.0); Lymphocytes % 16.4 % (21.3-54.2); Mean Corpuscular Volume 91.9 FL (87-102); Mean Platelet Volume 8.8 FL (9.6-12.0); Monocytes % 7.2 % (1.7-12.7); Neutrophils % 71.3 % (38.7-73.9); Platelet Count 677 T/CUMM (130-400); Red Blood Count 3.71 MC/CUMM (3.8-5.5); Red Cell Distribution Width 13.7 % (9.3-17.3); White Blood Count 16.1 T/CUMM (4-12)
[2020-03-30 17:23] LABS: INR 1.2; PT Patient Result 13.1 SECS (9.8-11.9)
[2020-03-30 17:35] LABS: Alanine Aminotransferase 24 U/L (13-56); Albumin 2.9 G/DL (3.4-5.0); Alkaline Phosphatase 148 U/L (45-117); Aspartate Amino Transferase 19 U/L (0-37); Bilirubin,Total < 0.39 MG/DL (0.2-1.0); Blood Urea Nitrogen 11 MG/DL (7-18); Calcium 9.3 MG/DL (8.5-10.1); Estimated Glom Filtration Rate 54 ML/MIN; Glucose 93 MG/DL (74-106); Osmolality,Calculated 281.1 MOS/KG (273-304); Total Protein 8.8 G/DL (6.4-8.3)
[2020-03-30] MEDS: INSULIN LISPRO 100 UNIT/ML SUBCUT SCH ×2 (17:38→21:00)
[2020-03-30] MEDS: ceFAZolin 2,000 MG in PREMIX 1 EACH IV SCH (17:54)
[2020-03-30] MEDS: LACTATED RINGERS 1,000 ML IV SCH (17:54)
[2020-03-30] MEDS ORDERED: IPRATROPIUM 500 MCG/2.5 ML NEB RESP TX PRN (18:04)
[2020-03-30] MEDS ORDERED: ZALEPLON 5 MG CAPSULE PO PRN (18:04)
[2020-03-30] MEDS ORDERED: NITROGLYCERIN SL 0.4 MG TABLET SL PRN (18:04)
[2020-03-30] MEDS: HYDROmorphone 2 MG/1 ML VIAL IV PRN ×2 (18:17→20:53)
[2020-03-30] MEDS: POTASSIUM CHLORIDE 20 MEQ TABLET PO PRN ×3 (18:34→22:36)
[2020-03-30 19:37] LABS: Bilirubin,Urine Negative (Negative); Blood, Urine Negative (Negative); Glucose,Urine (UA) Negative (Negative); Ketones,Urine Negative (Negative); Mucus,Urine Occasional /LPF (Occasional); Nitrite,Urine Negative (Negative); Protein,Urine Negative; RBC,Urine 3 /HPF (0-4); Squamous Epithelial Cell,Urine Occasional /HPF (0-10); Urine Appearance CLEAR (Clear); Urine Color Colorless (Yellow); Urine Specific Gravity 1.006 (1.001-1.035); Urine Urobilinogen < 2.0 EU/DL (0.2-1.0); WBC,Urine 1 /HPF (0-6)
[2020-03-30] MEDS: carvediloL 3.125 MG TABLET PO SCH (20:59)
[2020-03-30] MEDS: SERTRALINE 100 MG TABLET PO SCH (20:59)
[2020-03-30] MEDS: GABAPENTIN 300 MG CAPSULE PO SCH (20:59)
[2020-03-31] MEDS: HYDROmorphone 2 MG/1 ML VIAL IV PRN ×8 (00:08→20:30)
[2020-03-31] MEDS: ceFAZolin 2,000 MG in PREMIX 1 EACH IV SCH ×3 (00:09→16:46)
[2020-03-31] MEDS: POTASSIUM CHLORIDE 20 MEQ TABLET PO PRN (00:54)
[2020-03-31] MEDS: LACTATED RINGERS 1,000 ML IV SCH ×4 (03:24→23:28)
[2020-03-31 08:01] LABS: Calcium 8.5 MG/DL (8.5-10.1); Osmolality,Calculated 281.1 MOS/KG (273-304)
[2020-03-31] MEDS: INSULIN LISPRO 100 UNIT/ML SUBCUT SCH ×4 (08:40→22:04)
[2020-03-31] MEDS ORDERED: ATORVASTATIN 20 MG TABLET PO SCH (09:00)
[2020-03-31] MEDS: carvediloL 3.125 MG TABLET PO SCH ×2 (09:02→20:30)
[2020-03-31] MEDS: ISOSORBIDE DINITRATE 20 MG TABLET PO SCH (09:02)
[2020-03-31] MEDS: GLIMEPIRIDE 2 MG TABLET PO SCH (09:54)
[2020-03-31] MEDS: FUROSEMIDE 20 MG TABLET PO SCH (09:54)
[2020-03-31] MEDS: ASPIRIN EC 81 MG TABLET PO SCH (09:54)
[2020-03-31] MEDS: LEVOTHYROXINE 100 MCG TABLET PO SCH (09:55)
[2020-03-31] MEDS: GABAPENTIN 300 MG CAPSULE PO SCH ×4 (09:55→20:29)
[2020-03-31] MEDS: PANTOPRAZOLE 40 MG TABLET PO SCH (09:55)
[2020-03-31] MEDS: SERTRALINE 100 MG TABLET PO SCH ×2 (09:55→20:29)
[2020-03-31] MEDS ORDERED: DEXAMETHASONE 4 MG/1 ML VIAL ONE (10:21)
[2020-03-31] MEDS ORDERED: ROPIVACAINE 0.5% 30 ML VIAL ONE (10:21)
[2020-03-31] MEDS ORDERED: BACITRACIN OINT 0.9 GM PACK TOP ONE (10:50)
[2020-03-31] MEDS ORDERED: POTASSIUM CHLORIDE 20 MEQ TABLET PO ONE (12:56)
[2020-03-31] MEDS ORDERED: diphenhydrAMINE CAP 25 MG CAPSULE PO PRN (13:04)
[2020-03-31] MEDS ORDERED: SEVOFLURANE 1 UNIT/15 MINUTE INH ONE (13:11)
[2020-03-31] MEDS ORDERED: LIDOCAINE 2% 5 ML VIAL ONE (13:11)
[2020-03-31] MEDS ORDERED: LACTATED RINGERS 1,000 ML IV ONE (13:11)
[2020-03-31] MEDS ORDERED: propofoL 200 MG/20 ML VIAL IV ONE (13:11)
[2020-03-31] MEDS ORDERED: MIDAZOLAM 2 MG/2 ML VIAL ONE (13:11)
[2020-03-31] MEDS ORDERED: fentaNYL 100 MCG/2 ML VIAL ONE (13:11)
[2020-03-31] MEDS ORDERED: ACETAMINOPHEN 1,000 MG/100 ML VIAL IV ONE (13:11)
[2020-03-31] MEDS ORDERED: HYDROmorphone 2 MG/1 ML VIAL ONE (13:25)
[2020-03-31] MEDS ORDERED: ONDANSETRON 4 MG/2 ML VIAL ONE (13:25)
[2020-03-31] MEDS ORDERED: MEPERIDINE 25 MG/1 ML VIAL IV PRN (13:36)
[2020-03-31] MEDS ORDERED: ONDANSETRON 4 MG/2 ML VIAL IV PRN (13:36)
[2020-03-31] MEDS ORDERED: KETOROLAC 30 MG/1 ML VIAL ONE (13:39)
[2020-03-31] MEDS ORDERED: MEPERIDINE 25 MG/1 ML VIAL ONE (13:39)
[2020-03-31] MEDS: KETOROLAC 30 MG/1 ML VIAL IV PRN (13:42)
[2020-03-31] MEDS ORDERED: LORazepam 2 MG/1 ML VIAL IV ONE (14:10)
[2020-03-31] MEDS ORDERED: LORazepam 2 MG/1 ML VIAL ONE (14:13)
[2020-03-31] MEDS ORDERED: INFLUENZA VIRUS VACCINE 0.5 ML SYRINGE IM ONE (17:58)
[2020-03-31] MEDS: ATORVASTATIN 80 MG TABLET PO SCH (20:29)
[2020-03-31] MEDS: DOCUSATE SODIUM 100 MG CAPSULE PO SCH (20:29)
[2020-04-01] MEDS: HYDROmorphone 2 MG/1 ML VIAL IV PRN ×6 (00:26→22:35)
[2020-04-01] MEDS: ceFAZolin 2,000 MG in PREMIX 1 EACH IV SCH ×3 (00:27→20:01)
[2020-04-01] MEDS: KETOROLAC 30 MG/1 ML VIAL IV PRN (04:50)
[2020-04-01 05:30] LABS: Basophils % 0.2 % (0.0-0.8); Eosinophils % 0.1 % (0.00-10.9); Hematocrit 30.3 VOL% (35.7-47.0); Hemoglobin 9.5 GM/DL (12.0-16.0); Immature Granulocytes % 0.7 %; Immature Granulocytes Absolute 0.11 #; Lymphocytes # 2.2 10*3/uL (1.4-4.0); Lymphocytes % 14.9 % (21.3-54.2); Mean Corpuscular HGB Conc 31.4 GM/DL (32-36); Mean Corpuscular Volume 94.1 FL (87-102); Mean Platelet Volume 9.1 FL (9.6-12.0); Monocytes % 6.8 % (1.7-12.7); Neutrophils % 77.3 % (38.7-73.9); Platelet Count 662 T/CUMM (130-400); Red Blood Count 3.22 MC/CUMM (3.8-5.5); Red Cell Distribution Width 13.6 % (9.3-17.3); White Blood Count 14.9 T/CUMM (4-12)
[2020-04-01 05:46] LABS: Risk Ratio 3.15; VLDL CHOLESTEROL 23.6 MG/DL
[2020-04-01 05:47] LABS: Calcium 8.8 MG/DL (8.5-10.1); Osmolality,Calculated 280.1 MOS/KG (273-304)
[2020-04-01] MEDS: FONDAPARINUX 2.5 MG/0.5 ML SYRINGE SUBCUT SCH (06:08)
[2020-04-01] MEDS ORDERED: DEXTROSE 50% 25 GM/50 ML VIAL IV PRN (07:18)
[2020-04-01] MEDS ORDERED: GLUCAGON 1 MG VIAL IM PRN (07:18)
[2020-04-01] MEDS: INSULIN LISPRO 100 UNIT/ML SUBCUT SCH ×4 (07:37→21:38)
[2020-04-01] MEDS: LACTATED RINGERS 1,000 ML IV SCH ×2 (07:54→14:11)
[2020-04-01] MEDS: GABAPENTIN 300 MG CAPSULE PO SCH ×4 (13:39→22:33)
[2020-04-01] MEDS: GLIMEPIRIDE 2 MG TABLET PO SCH (13:39)
[2020-04-01] MEDS: SERTRALINE 100 MG TABLET PO SCH ×2 (13:39→21:43)
[2020-04-01] MEDS: FUROSEMIDE 20 MG TABLET PO SCH (13:40)
[2020-04-01] MEDS: PANTOPRAZOLE 40 MG TABLET PO SCH (13:40)
[2020-04-01] MEDS: ASPIRIN EC 81 MG TABLET PO SCH (13:40)
[2020-04-01] MEDS: DOCUSATE SODIUM 100 MG CAPSULE PO SCH ×2 (13:41→21:43)
[2020-04-01] MEDS: LEVOTHYROXINE 100 MCG TABLET PO SCH (13:41)
[2020-04-01] MEDS: ISOSORBIDE DINITRATE 20 MG TABLET PO SCH (14:09)
[2020-04-01] MEDS: carvediloL 3.125 MG TABLET PO SCH ×2 (14:11→21:43)
[2020-04-01] MEDS: ATORVASTATIN 80 MG TABLET PO SCH (21:43)
[2020-04-01] MEDS: oxyCODONE/ACETAMINOPHEN 5-325 MG TABLET PO PRN (23:59)
[2020-04-02] MEDS: ceFAZolin 2,000 MG in PREMIX 1 EACH IV SCH ×2 (02:03→09:32)
[2020-04-02] MEDS: HYDROmorphone 2 MG/1 ML VIAL IV PRN ×6 (04:03→23:16)
[2020-04-02] MEDS: oxyCODONE/ACETAMINOPHEN 5-325 MG TABLET PO PRN ×2 (06:00→16:22)
[2020-04-02 06:07] LABS: Basophils # 0.1 10*3/uL (0.0-0.2); Basophils % 0.6 % (0.0-0.8); Eosinophils # 0.3 10*3/uL (0.0-0.87); Eosinophils % 3.3 % (0.00-10.9); Hematocrit 26.7 VOL% (35.7-47.0); Hemoglobin 8.2 GM/DL (12.0-16.0); Immature Granulocytes % 0.4 %; Immature Granulocytes Absolute 0.04 #; Lymphocytes % 29.2 % (21.3-54.2); Mean Corpuscular HGB Conc 30.7 GM/DL (32-36); Mean Platelet Volume 9.1 FL (9.6-12.0); Monocytes % 5.9 % (1.7-12.7); Neutrophils % 60.6 % (38.7-73.9); Platelet Count 521 T/CUMM (130-400); Red Blood Count 2.81 MC/CUMM (3.8-5.5); Red Cell Distribution Width 14.1 % (9.3-17.3); White Blood Count 10.3 T/CUMM (4-12)
[2020-04-02] MEDS: FONDAPARINUX 2.5 MG/0.5 ML SYRINGE SUBCUT SCH (06:08)
[2020-04-02] MEDS ORDERED: hydrALAZINE 20 MG/1 ML VIAL IV PRN (07:24)
[2020-04-02] MEDS: INSULIN LISPRO 100 UNIT/ML SUBCUT SCH ×4 (09:31→20:45)
[2020-04-02] MEDS: carvediloL 3.125 MG TABLET PO SCH ×2 (09:33→20:47)
[2020-04-02] MEDS: SERTRALINE 100 MG TABLET PO SCH ×2 (09:33→20:47)
[2020-04-02] MEDS: GLIMEPIRIDE 2 MG TABLET PO SCH (09:34)
[2020-04-02] MEDS: FUROSEMIDE 20 MG TABLET PO SCH (09:34)
[2020-04-02] MEDS: GABAPENTIN 300 MG CAPSULE PO SCH ×3 (09:34→20:44)
[2020-04-02] MEDS: ASPIRIN EC 81 MG TABLET PO SCH (09:34)
[2020-04-02] MEDS: PANTOPRAZOLE 40 MG TABLET PO SCH (09:34)
[2020-04-02] MEDS: ISOSORBIDE DINITRATE 20 MG TABLET PO SCH (09:34)
[2020-04-02] MEDS: DOCUSATE SODIUM 100 MG CAPSULE PO SCH ×2 (09:34→20:47)
[2020-04-02] MEDS: LEVOTHYROXINE 100 MCG TABLET PO SCH (09:38)
[2020-04-02] MEDS ORDERED: AZITHROMYCIN INJ 250 MG in SODIUM CHLORIDE 0.9% 250 ML IV SCH (15:00)
[2020-04-02] MEDS: methylPREDNISolone SOD SUC 40 MG/1 ML VIAL IV SCH (16:33)
[2020-04-02] MEDS: ATORVASTATIN 80 MG TABLET PO SCH (20:47)
[2020-04-03] MEDS: HYDROmorphone 2 MG/1 ML VIAL IV PRN ×3 (03:02→09:55)
[2020-04-03] MEDS ORDERED: cloNIDine 0.1 MG TABLET PO ONE (03:22)
[2020-04-03] MEDS: methylPREDNISolone SOD SUC 40 MG/1 ML VIAL IV SCH (04:04)
[2020-04-03] MEDS: GABAPENTIN 300 MG CAPSULE PO SCH ×3 (05:25→15:46)
[2020-04-03 05:49] LABS: Basophils # 0.1 10*3/uL (0.0-0.2); Basophils % 0.3 % (0.0-0.8); Eosinophils # 0.1 10*3/uL (0.0-0.87); Eosinophils % 0.4 % (0.00-10.9); Hematocrit 30.4 VOL% (35.7-47.0); Hemoglobin 9.3 GM/DL (12.0-16.0); Immature Granulocytes % 0.6 %; Immature Granulocytes Absolute 0.09 #; Lymphocytes # 1.9 10*3/uL (1.4-4.0); Lymphocytes % 12.6 % (21.3-54.2); Mean Corpuscular HGB Conc 30.6 GM/DL (32-36); Mean Corpuscular Volume 94.4 FL (87-102); Mean Platelet Volume 9.2 FL (9.6-12.0); Monocytes % 5.1 % (1.7-12.7); Platelet Count 555 T/CUMM (130-400); Red Blood Count 3.22 MC/CUMM (3.8-5.5); White Blood Count 14.7 T/CUMM (4-12)
[2020-04-03 06:32] LABS: Calcium 8.4 MG/DL (8.5-10.1)
[2020-04-03] MEDS ORDERED: IPRATROPIUM 500 MCG/2.5 ML NEB RESP TX SCH (07:00)
[2020-04-03] MEDS: oxyCODONE/ACETAMINOPHEN 5-325 MG TABLET PO PRN (07:01)
[2020-04-03] MEDS ORDERED: cloNIDine 0.1 MG TABLET PO SCH (09:00)
[2020-04-03] MEDS: INSULIN LISPRO 100 UNIT/ML SUBCUT SCH ×2 (09:56→12:52)
[2020-04-03] MEDS: DOCUSATE SODIUM 100 MG CAPSULE PO SCH (09:57)
[2020-04-03] MEDS: PANTOPRAZOLE 40 MG TABLET PO SCH (09:57)
[2020-04-03] MEDS: ISOSORBIDE DINITRATE 20 MG TABLET PO SCH (09:57)
[2020-04-03] MEDS: FUROSEMIDE 20 MG TABLET PO SCH (09:57)
[2020-04-03] MEDS: SERTRALINE 100 MG TABLET PO SCH (09:57)
[2020-04-03] MEDS: LEVOTHYROXINE 100 MCG TABLET PO SCH (09:58)
[2020-04-03] MEDS: ASPIRIN EC 81 MG TABLET PO SCH (09:58)
[2020-04-03] MEDS: carvediloL 3.125 MG TABLET PO SCH (09:58)
[2020-04-03] MEDS: GLIMEPIRIDE 2 MG TABLET PO SCH (09:58)
[2020-04-03] MEDS: FONDAPARINUX 2.5 MG/0.5 ML SYRINGE SUBCUT SCH (10:15)
[2020-04-03 12:08] VITALS: BP 123/64
== END 2020-04-03 14:55 | DRG 857 ==
LOC: N.3E 16:28
PROVIDERS: ADMIT Orthopaedic Surgery; ATTEND Orthopaedic Surgery

== ENCOUNTER 2022-08-16 12:32 | Observation (INO) ==
[2022-08-16] MEDS ORDERED: ASPIRIN 325 MG TABLET PO STA (14:04)
[2022-08-16 14:16] LABS: Basophils # 0.1 10*3/uL (0.0-0.2); Basophils % 1.2 % (0.0-0.8); Eosinophils # 0.1 10*3/uL (0.0-0.87); Eosinophils % 1.9 % (0.00-10.9); Hematocrit 37.3 VOL% (35.7-47.0); Hemoglobin 12.1 GM/DL (12.0-16.0); Immature Granulocytes % 0.3 %; Immature Granulocytes Absolute 0.02 #; Lymphocytes % 41.5 % (21.3-54.2); Mean Corpuscular HGB Conc 32.4 GM/DL (32-36); Mean Corpuscular Volume 93.5 FL (87-102); Mean Platelet Volume 9.9 FL (9.6-12.0); Monocytes # 0.5 10*3/uL (0.11-0.8); Monocytes % 6.1 % (1.7-12.7); Platelet Count 285 T/CUMM (130-400); Red Blood Count 3.99 MC/CUMM (3.8-5.5); White Blood Count 7.32 T/CUMM (4-12)
[2022-08-16 14:24] LABS: PT Patient Result 11.4 SECS (10.1-12.1); Partial Thromboplastin Time 27.4 SECS (23.7-32.9)
[2022-08-16 14:28] LABS: Alanine Aminotransferase 67 U/L (13-56); Albumin 3.5 G/DL (3.4-5.0); Alkaline Phosphatase 117 U/L (45-117); Aspartate Amino Transferase 53 U/L (0-37); Bilirubin,Total < 0.39 MG/DL (0.20-1.00); Blood Urea Nitrogen 24 MG/DL (7-18); Calcium 9.1 MG/DL (8.5-10.1); Carbon Dioxide 21 MMOL/L (21-32); Chloride 106 MMOL/L (98-107); Glucose 231 MG/DL (74-106); Osmolality,Calculated 285.7 MOS/KG (273-304); Potassium 4.4 MMOL/L (3.5-5.1); Sodium 138 MMOL/L (136-145); Total Protein 7.3 G/DL (6.4-8.2)
[2022-08-16] MEDS ORDERED: hydrALAZINE 20 MG/1 ML VIAL IM ONE (16:45)
[2022-08-16] MEDS ORDERED: hydrALAZINE 20 MG/1 ML VIAL IV ONE (16:48)
[2022-08-16] MEDS ORDERED: hydrALAZINE 20 MG/1 ML VIAL ONE (16:49)
[2022-08-16] MEDS ORDERED: NITROGLYCERIN SL 0.4 MG TABLET SL PRN (17:35)
[2022-08-16] MEDS ORDERED: GLUCAGON 1 MG VIAL IM PRN ×2 (17:36→18:09)
[2022-08-16] MEDS ORDERED: DEXTROSE 10% 250 ML BAG IV PRN (17:36)
[2022-08-16] MEDS ORDERED: hydrALAZINE 20 MG/1 ML VIAL IV PRN (17:36)
[2022-08-16] MEDS ORDERED: MAGNESIUM SULF RIDER 2 GM/50 ML PREMIX IV PRN (17:36)
[2022-08-16] MEDS ORDERED: MORPHINE 2 MG/1 ML SYRINGE IV PRN (17:36)
[2022-08-16] MEDS ORDERED: POTASSIUM CHLORIDE 20 MEQ TABLET PO PRN (17:36)
[2022-08-16] MEDS ORDERED: MAGNESIUM SULF RIDER 4 GM/100 ML PREMIX IV PRN (17:36)
[2022-08-16] MEDS ORDERED: ACETAMINOPHEN 325 MG TABLET PO PRN (18:09)
[2022-08-16] MEDS ORDERED: ENOXAPARIN 40 MG/0.4 ML SYRINGE SUBCUT SCH ×2 (18:09→21:00)
[2022-08-16] MEDS ORDERED: tiZANidine 4 MG TABLET PO PRN (18:09)
[2022-08-16] MEDS ORDERED: ONDANSETRON 4 MG/2 ML VIAL IV PRN (18:09)
[2022-08-16] MEDS ORDERED: DEXTROSE 50% 25 GM/50 ML VIAL IV PRN (18:09)
[2022-08-16] MEDS ORDERED: INSULIN LISPRO 100 UNIT/ML SUBCUT SCH (18:09)
[2022-08-16] MEDS: ENOXAPARIN 80 MG/0.8 ML SYRINGE SUBCUT SCH (18:24)
[2022-08-16] MEDS: DOCUSATE SODIUM 100 MG CAPSULE PO SCH (20:34)
[2022-08-16] MEDS: SERTRALINE 100 MG TABLET PO SCH (20:34)
[2022-08-16] MEDS ORDERED: GABAPENTIN 400 MG CAPSULE PO SCH (21:00)
[2022-08-16] MEDS ORDERED: ATORVASTATIN 20 MG TABLET PO SCH (21:00)
[2022-08-16] MEDS: INSULIN LISPRO 100 UNIT/ML SUBCUT SCH (22:05)
[2022-08-17] MEDS: ENOXAPARIN 80 MG/0.8 ML SYRINGE SUBCUT SCH (05:00)
[2022-08-17] MEDS ORDERED: LEVOTHYROXINE 100 MCG TABLET PO SCH (06:00)
[2022-08-17 06:49] LABS: Risk Ratio 6.34; VLDL Cholesterol 84.6 MG/DL
[2022-08-17] MEDS: INSULIN LISPRO 100 UNIT/ML SUBCUT SCH ×2 (08:20→11:52)
[2022-08-17] MEDS: SERTRALINE 100 MG TABLET PO SCH (08:39)
[2022-08-17] MEDS: GABAPENTIN 400 MG CAPSULE PO SCH ×2 (08:41→14:42)
[2022-08-17] MEDS: DOCUSATE SODIUM 100 MG CAPSULE PO SCH (08:41)
[2022-08-17] MEDS ORDERED: carvediloL 12.5 MG TABLET PO SCH ×2 (09:00→21:00)
[2022-08-17] MEDS ORDERED: PANTOPRAZOLE 40 MG TABLET PO SCH ×3 (09:00)
[2022-08-17] MEDS ORDERED: GLIMEPIRIDE 2 MG TABLET PO SCH (09:00)
[2022-08-17] MEDS ORDERED: ISOSORBIDE DINITRATE 20 MG TABLET PO SCH (09:00)
[2022-08-17] MEDS ORDERED: FUROSEMIDE 20 MG TABLET PO SCH (09:00)
[2022-08-17] MEDS ORDERED: cloNIDine 0.1 MG TABLET PO SCH ×2 (09:00→15:00)
[2022-08-17] MEDS ORDERED: VALSARTAN 80 MG TABLET PO SCH (10:00)
[2022-08-17] MEDS ORDERED: ASPIRIN EC 81 MG TABLET PO SCH (10:04)
[2022-08-17] MEDS ORDERED: hydrALAZINE 20 MG/1 ML VIAL IV ONE (11:52)
[2022-08-17 13:23] VITALS: BP 144/52
[2022-08-17] MEDS ORDERED: carvediloL 6.25 MG TABLET PO SCH (21:00)
== END 2022-08-17 15:16 | disposition home or self-care (01) ==
LOC: N.ED 12:32 → N.2W 12:32
PROVIDERS: ADMIT Family Medicine; ATTEND Family Medicine